=== PATIENT | female | born 1995 | race American Indian/Alaskan Native ===

== ENCOUNTER → 2018-03-07 15:10 | Outpatient (CLI) | payer MEDICAID, OTHER, SELFPAY ==
[2018-03-08 12:56] LABS: Strep Grp B PCR NEG for Grp B Strep
== END ==
PROVIDERS: Family Provider Family Medicine; PCP Family Medicine; Visit Provider Family Medicine
DX: Z34.93 Encounter for supervision of normal pregnancy, unspecified, third trimester (principal); Z3A.37 37 weeks gestation of pregnancy
CPT/HCPCS: 87653

== ENCOUNTER 2018-03-22 14:18 | Observation (INO) | payer MEDICAID, OTHER, SELFPAY | END 2018-03-22 17:05 | disposition home or self-care (01) | PROVIDERS: Admitting Provider Family Medicine; Family Provider Family Medicine; PCP Family Medicine; Visit Provider Family Medicine | DX: Z34.83 Encounter for supervision of other normal pregnancy, third trimester (principal); Z3A.39 39 weeks gestation of pregnancy | CPT/HCPCS: 59025; G0378; G0379 ==

== ENCOUNTER 2018-03-22 23:18 | Inpatient (IN) | payer MEDICAID, OTHER, SELFPAY ==
--- NOTE | 2018-03-22 23:44 | PM.OBHP.1 ---
OB HPI History of Present Illness Chief complaint: evaluation of labor Narrative: Sheri Nixon is a 22 year old female G4 P 1 who comes in in active labor dilated to 9 cm at 39 and 1 7 weeks gestation. Patient had presented earlier in the evening approximately 7 hr prior and very early labor. She was 3 cm dilated at that time, and had not changed after an hour. Patient's membranes were intact. Maternal laboratories include a blood type of O positive, antibody negative, serology nonreactive, rubella immune, gonorrhea and Chlamydia negative, hepatitis B and C negative, GBS negative. [facility] Social History Smoking Status: Never smoker Meds Home Medications Medication Instructions Recorded Confirmed Type No Known Home Medications 03/23/18 03/23/18 History Allergies Allergy/AdvReac Type Severity Reaction Status Date / Time No Known Drug Allergies Allergy Verified 03/23/18 08:42 Review of Systems Review of Systems All systems reviewed & are unremarkable except as noted in HPI and below Exam Vital Signs (past 8 hours): Patient in active labor. GENERAL: Well-developed well-nourished woman, clearly uncomfortable HEENT: Normocephalic, atraumatic, pupils equal and reactive to light and accommodation. LUNG: Clear to auscultation bilaterally. No wheeze or crackles or rhonchi. No increased work in breathing. CV: Regular rate and rhythm. No murmurs rubs or gallops. Abdomen: Soft, gravid. AFFECT: Alert and oriented X3. Conversational and appropriate. At the time of my exam the patient was complete and pushing. Brief auscultation of heart rate using Doppler revealed a pulse of 142. Contractions were every 2-3 minutes. Objective Labs Result Diagrams: 03/23/18 07:47 Assessment and Plan Plan: Plan: 1. Anticipate Spontaneous vaginal delivery.
--- NOTE | 2018-03-22 23:54 | P.HPOB_ITS ---
OB HPI History of Present Illness Chief complaint: evaluation of labor Narrative: Sheri Nixon is a 22 year old female G4 P 1 who comes in in active labor dilated to 9 cm at 39 and 1 7 weeks gestation. Patient had presented earlier in the evening approximately 7 hr prior and very early labor. She was 3 cm dilated at that time, and had not changed after an hour. Patient 's membranes were intact. Maternal laboratories include a blood type of O positive, antibody negative, serology nonreactive, rubella immune, gonorrhea and Chlamydia negative, hepatitis B and C negative, GBS negative. [facility] Social History Smoking Status: Never smoker Meds Home Medications Medication Instructions Recorded Confirmed Type No Known Home Medications 03/23/18 03/23/18 History Allergies Allergy/AdvReac Type Severity Reaction Status Date / Time No Known Drug Allergies Allergy Verified 03/23/18 08:42 Review of Systems Review of Systems All systems reviewed & are unremarkable except as noted in HPI and below Exam Vital Signs (past 8 hours): Patient in active labor. GENERAL: Well-developed well-nourished woman, clearly uncomfortable HEENT: Normocephalic, atraumatic, pupils equal and reactive to light and accommodation. LUNG: Clear to auscultation bilaterally. No wheeze or crackles or rhonchi. No increased work in breathing. CV: Regular rate and rhythm. No murmurs rubs or gallops. Abdomen: Soft, gravid. AFFECT: Alert and oriented X3. Conversational and appropriate. At the time of my exam the patient was complete and pushing. Brief auscultation of heart rate using Doppler revealed a pulse of 142. Contractions were every 2-3 minutes. Objective Labs Result Diagrams: 03/23/18 07:47 Assessment and Plan Plan: Plan: 1. Anticipate Spontaneous vaginal delivery.
[2018-03-23 00:03] LABS: Add Manual Diff / Slide Review NO; Basophils Percent Auto 0.6 % (0-2); Eosinophils Percent Auto 0.1 % (2-4); Hematocrit 31.6 % (36-46); Hemoglobin 10.4 g/dL (12.0-16.0); Lymphocytes Percent Auto 11.5 % (25-40); Mean Corpuscular Hemoglobin 24.6 PG (26-34); Mean Corpuscular Volume 74.6 fL (80-100); Monocytes Percent Auto 2.5 % (3-14); Neutrophils Absolute Auto 10600 /uL (3000-5900); Neutrophils Percent Auto 85.3 % (50-75); Platelet Count 490 X10^3/uL (150-400); Red Blood Cell Count 4.23 X10^6/uL (4.0-5.2); Red Cell Distribution Width 13.7 % (11.6-14.8); White Blood Cell Count 12.5 X10^3/uL (4.5-11.0)
[2018-03-23] MEDS: OXYTOCIN 10 UNIT/ML VIAL IM (00:15)
[2018-03-23] MEDS: IBUPROFEN 600 MG TABLET PO ×4 (01:05→20:24)
[2018-03-23 02:59] VITALS: BP 110/70
[2018-03-23 08:20] LABS: Hematocrit 30.6 % (36-46); Hemoglobin 9.8 g/dL (12.0-16.0)
--- NOTE | 2018-03-23 14:16 | PM.OBPRVD ---
Narrative: The patient is a 22-year-old G4 P 1-2 who presented in active labor at 9 cm dilated. Patient had previously presented earlier in the evening, dilated to 3 cm, and was sent home as she was felt to be in early labor. Patient presented to the center around 11:15 p.m.. Spontaneous rupture of membranes at 11:58 p.m.. Clear fluid. Patient began stage II at approximately 12:00 a.m.. She pushed for a few minutes, and delivered a healthy female at 12:03 a.m, via spontaneous vaginal delivery.. IM Pitocin was given after delivery of the . was placed on maternal abdomen. Placenta delivered at 12:19 a.m., intact. Patient tolerated the procedure well. She sustained a first-degree laceration which was repaired with 3 0 chromic. Estimated blood loss was approximately 200 mL
[2018-03-24] MEDS: IBUPROFEN 600 MG TABLET PO (02:51)
--- NOTE | 2018-03-24 11:13 | PM.DS.1 ---
History of Present Illness Chief complaint: evaluation of labor Discharge Providers Date of admission: 03/22/18 23:18 Primary care physician: Africa Gagnon MD Consults: 03/23/18 00:31 Consult to Outside Sales Consultant Routine Comment: Discharge provider: Africa Gagnon MD Summary Hospital Course: Sheri Nixon is a 22 year old female G4 P 1 who presented in active labor dilated to 9 cm at 39 and 1 7 weeks gestation. Patient had presented earlier in the evening approximately 7 hr prior and very early labor. She was 3 cm dilated at that time, and had not changed after an hour. Patient's membranes were intact. Patient progressed quite precipitously. She delivered a healthy female weighing 7 lb and 4 oz at 12 03 am on 03/23/2018. Remainder of hospital course was unremarkable. Patient had voided. hemoglobin was 9.8. Patient was feeding her infant quite well and does have experience with nursing. Maternal laboratories include a blood type of O positive, antibody negative, serology nonreactive, rubella immune, gonorrhea and Chlamydia negative, hepatitis B and C negative, GBS negative. Status at Discharge Functional status at discharge: independent ambulation Time Spent with Patient Less than 30 minutes Objective Labs Result Diagrams: 03/23/18 07:47 Discharge Plan Discharge Plan Patient Disposition: Home, Self-Care Discharge comment: f/U [place] 4-6 WEEKS Discharge Med Rec/Prescriptions Prescriptions: New oxycodone-acetaminophen 5-325 mg Tablet 1 tab PO Q4HR PRN (Reason: Pain, Moderate) Qty: 30 RF: 0 ibuprofen 600 mg Tablet 600 mg PO Q6HR PRN (Reason: Pain, Mild) Qty: 30 RF: 0 docusate sodium [Colace] 100 mg capsule 100 mg PO BID Qty: 30 RF: 0 [id number] [Prenatabs Rx] 29 mg iron- 1 mg Tablet 1 tab PO DAILY Qty: 90 RF: 0 No Action No Known Home Medications RF: 0 Provider Discharge Instructions Diet: Diet as Tolerated Discharge Data Primary Care Provider: Africa Gagnon Attending Provider: Africa Gagnon Admit Date/Time: 03/22/18 23:18
[2018-03-24 12:07] VITALS: BP 110/70; PULSE 90; TEMP 36.9
== END 2018-03-24 13:15 | disposition home or self-care (01) | DRG 775 ==
PROVIDERS: Admitting Provider Family Medicine; Family Provider Family Medicine; PCP Family Medicine; Visit Provider Family Medicine
DX: O70.0 First degree perineal laceration during delivery (principal); Z3A.39 39 weeks gestation of pregnancy; Z37.0 Single live birth
CPT/HCPCS: 36415; 59025; 59050; 59410; 85014; 85018; 85025; 86850; 86900; 86901; G0378; G0379; J2590

== ENCOUNTER 2018-12-03 23:12 | Emergency (ER) | payer MEDICAID, OTHER, SELFPAY ==
[2018-12-03 23:21] VITALS: BP 115/64; PULSE 78; RESP 20; TEMP 36.6; O2SAT 99
[2018-12-03] MEDS: PHENAZOPYRIDINE 100 MG PREPACK 1 BOTTLE MISC (23:38)
[2018-12-03] MEDS: cephALEXin 250 MG CAPSULE 500 MG PO (23:39)
[2018-12-03 23:45] VITALS: BP 114/66; PULSE 90; RESP 14; O2SAT 98
[2018-12-04 00:02] LABS: Bacteria Urine Moderate (10-30); Culture Indicated Urine Specimen Cultured; RBC Urine 10-30/HPF (0-5/HPF); Squamous Epithelial Cell Urine 1-5 /HPF; WBC Urine >100/HPF (0-5/HPF)
[2018-12-04 00:04] LABS: Ictotest Urine Negative (Negative)
--- NOTE | 2018-12-04 00:37 | ED.FEMALEGU ---
HPI - Female Genitourinary General Chief complaint: Urogenital-Female Stated complaint: thinks she has UTI painful urination Time Seen by Provider: 12/03/18 23:15 Source: patient and family Mode of arrival: ambulatory Limitations: no limitations History of Present Illness HPI Narrative: 23-year-old female nonsmoker presents with chief complaint of 24 hr of burning, frequency and urgency of urination as well as obvious mild hematuria. She denies any systemic findings such as fever chills nor nausea, vomiting or back pain. MD Complaint: dysuria and UTI Onset (ago): hour(s) Female Urogenital Radiation: Suprapubic Severity: mild Quality: Burning Duration: constant Relieving factors: none Exacerbating factors: none Urinary symptoms: Difficulty Urinating, Dysuria, Frequency, Hematuria and Urgency Patient : No Related Data Previous Rx's Medication Instructions Recorded cephalexin [Keflex] 500 mg PO QID 5 Days #20 cap 12/03/18 Allergies Allergy/AdvReac Type Severity Reaction Status Date / Time No Known Drug Allergies Allergy Verified 05/07/18 14:28 Review of Systems Constitutional Denies chills, Denies fever(s), Denies lethargy and Denies weakness Eyes Denies change in vision, Denies eye discharge, Denies irritation and Denies loss of vision ENT Ears, Nose, Mouth, and Throat: Denies change in voice, Denies neck pain and Denies sore throat Cardiovascular Denies chest pain, Denies irregular heart rhythm, Denies lightheadedness, Denies palpitations, Denies dyspnea, Denies dyspnea on exertion and Denies orthopnea Respiratory Denies cough, Denies dyspnea, Denies dyspnea on exertion and Denies wheezing Gastrointestinal Gastrointestinal: Denies abdominal pain, Denies change in bowel habits, Denies diarrhea, Denies nausea and Denies vomiting Genitourinary Denies hematuria, Reports dysuria, Denies flank pain, Denies urinary incontinence and Reports urinary urgency Musculoskeletal Denies neck pain Integumentary/Breasts Denies pruritus, Denies erythema, Denies rash and Denies wounds Neurologic Denies confusion, Denies loss of vision and Denies weakness Psychiatric Denies anxiety, Denies confusion, Denies depression, Denies homicidal ideation and Denies suicidal ideation Endocrine Denies palpitations Hematologic/Lymphatic Denies easy bruising Allergic/Immunologic Denies wheezing [facility] Social History Smoking Status: Never smoker Social History Smoking Status: Never smoker Exam Narrative Exam Narrative: GEN: AOx3 and in mild distress EYES: Pupils are equal, round, and reactive to light and accommodation. Extraoccular muscles are intact bilaterally. There is no subconjunctival hemorrhage or exudate. CHEST: Lungs are clear to auscultation bilaterally and free of wheezes, rales, or rhonchi. Heart rate is regular rhythm, there are no murmurs, clicks, rubs, or gallops. There is no chest wall tenderness. ABD: Abdomen is soft and mildly tender in the suprapubic region. There is no guarding or rebound. Bowel sounds are normal in all 4 quadrants. There is no mass or organomegaly. EXT: Full painless ROM of all extremities with no loss of sensation or strength. BACK: no CVA tenderness SKIN: Warm, pink, and dry. No erythema or rash Initial Vital Signs Initial Vital Signs: Vital Signs Temperature 97.9 F 12/03/18 23:21 Pulse Rate 78 12/03/18 23:21 Respiratory Rate 20 12/03/18 23:21 Blood Pressure 115/64 12/03/18 23:21 Pulse Oximetry 99 12/03/18 23:21 Course Orders Ordered: ED Orders 12/03/18 23:28 Ictotest Urine Stat Urine Culture Stat Urine Microscopic Stat Discontinued Medications Cephalexin HCl (Keflex) 500 mg PO NOW ONE Stop: 12/03/18 23:33 Last Admin: 12/03/18 23:39 Dose: 500 mg Phenazopyridine HCl (Pyridium 100mg Prepack) 1 bottle MISC SEEINSTR ONE Stop: 12/03/18 23:33 Last Admin: 12/03/18 23:38 Dose: 1 bottle Vital Signs - 8 hr 12/03/18 23:21 12/03/18 23:45 Temperature 97.9 F Pulse Rate 78 90 Respiratory Rate 20 14 Blood Pressure 115/64 114/66 Pulse Oximetry 99 98 MDM - Female Genitourinary Lab Data Lab Results 12/03/18 Range/Units 23:28 Urine Ictotest Negative (Negative) Urine RBC 10-30/hpf H (0-5/HPF) Urine WBC >100/hpf H (0-5/HPF) Ur Squamous Epith Cells 1-5 /hpf Urine Bacteria Moderate (10-30) H (None) Ur Culture Indicated? Specimen cultured Point of Care Testing Test Results Negative Urine Dip Bedside Urine Glucose Negative Bedside Urine Bilirubin + 1 Bedside Urine Ketone +/- 5 Urine Specific [place] 1.030 Bedside Urine Occult Blood +++ Bedside Urine pH 6.0 Bedside Urine Protein ++ 100 Bedside Urine Urobilinogen +/- 1mg Bedside Urine Nitrite + Positive Bedside Urine Leukocytes ++ 125 Esterase Discharge Plan Departure Patient Disposition: Home Clinical Impression: UTI (urinary tract infection) Qualifiers: Urinary tract infection type: acute cystitis Hematuria presence: with hematuria Qualified Code(s): N30.01 - Acute cystitis with hematuria Discharge Date/Time: 12/03/18 23:45 Interventions: ED Discharge Assessment Last Done: 12/03/18 23:45 Instructions: DI for Urinary Tract Infection (UTI) Activity Restrictions/Additional Instructions: *You have been diagnosed with [ acute UTI ] *What to do: *Take medications as directed: Prescription has been sent to [facility] based on your request *Follow up with your primary care provider in 2-3 days, call for an appointment. Let them know you were seen in the Emergency Department and that we ask that you be seen in follow up *Return to ER if you should have any new, worsening or concerning symptoms Prescriptions: New cephalexin [Keflex] 500 mg capsule 500 mg PO QID 5 Days Qty: 20 RF: 0 Referrals: Africa Gagnon MD [Primary Care Provider] - Stand Alone Forms: Work Release Note
== END 2018-12-03 23:45 | disposition home or self-care (01) ==
PROVIDERS: Emergency Provider Emergency Medicine; Family Provider Family Medicine; PCP Family Medicine
DX: N30.01 Acute cystitis with hematuria (principal)
CPT/HCPCS: 81003; 81015; 81025; 87077; 87086; 87186; 99282; 99283

== ENCOUNTER 2020-01-28 12:49 | Emergency (ER) | payer MEDICAID, OTHER, SELFPAY ==
[2020-01-28 12:56] VITALS: BP 118/73; PULSE 78; RESP 18; TEMP 36.3; O2SAT 99
[2020-01-28 13:19] VITALS: BP 118/73; PULSE 70; RESP 12; O2SAT 99
--- NOTE | 2020-01-28 13:25 | ED.NEUROSD ---
HPI - Neuro Symptoms/Deficit General Chief Complaint: Neuro Symptoms/Deficit Stated Complaint: RT SIDE OF BRAIN FEELS HEAVY Time Seen by Provider: 01/28/20 12:54 Source: patient Mode of arrival: Ambulatory Limitations: no limitations History of Present Illness HPI Narrative: 24-year-old female here for evaluation of complaints that the right side of her brain feels heavy. States that yesterday afternoon she was doing dishes. She states that she felt lightheaded. Developed somewhat of a headache after that. Initially after that felt like that the right side of her head was heavy. Could provide no other further information than that. No fevers. She states that today her symptoms have improved somewhat since yesterday per has not tried anything for symptoms prior to arrival. Has never had anything like this in the past. On Anticoagulants: No Related Data Allergies Allergy/AdvReac Type Severity Reaction Status Date / Time No Known Drug Allergies Allergy Verified 05/07/18 14:28 Review of Systems Constitutional Constitutional: Denies chills, Denies fatigue, Denies fever(s) and Reports headache(s) Eyes Eyes: Denies change in vision and Denies diplopia ENT Ears, Nose, Mouth, and Throat: Reports dizziness and Reports headache(s) Cardiovascular Cardiovascular: Denies chest pain, Denies palpitations and Denies dyspnea Respiratory Respiratory: Denies dyspnea Gastrointestinal Gastrointestinal: Reports nausea and Denies vomiting Musculoskeletal Musculoskeletal: Denies myalgias and Denies arthralgias Integumentary/Breasts Skin/Breast: Denies lesions and Denies rash Neurologic Neurologic: Reports dizziness and Reports headache(s) Comments: Right side of brain feels heavy Endocrine Endocrine: Denies fatigue and Denies palpitations Hematologic/Lymphatic Hematologic/Lymphatic: Denies easy bleeding and Denies easy bruising Patient History Medical History Impetigo (Inactive) Social History Smoking Status: Never smoker Smoking Status: Never smoker alcohol intake frequency: 0-2 drinks per day Substance Use Type: does not use Exam Initial Vital Signs Initial Vital Signs: Vital Signs Temperature 97.3 F L 01/28/20 12:56 Pulse Rate 78 01/28/20 12:56 Respiratory Rate 18 01/28/20 12:56 Blood Pressure 118/73 01/28/20 12:56 Pulse Oximetry 99 01/28/20 12:56 Const General: cooperative, comfortable, well developed, well groomed and No acute distress Limitations: mental status not altered HENDC Head: normal to inspection and normocephalic Eyes Pupils: PERRL EOM: EOM intact bilaterally Resp Effort & Inspection: normal respiratory effort Auscultation: clear to auscultation bilaterally Cardio Rate: regular rate Rhythm: regular rhythm Skin Lesions: no lesions Rashes: no rashes Neuro General: alert, awake and oriented x3 Cranial Nerves: CN's II-XI intact bilaterally Cognition: normal cognition Speech: speech normal Gait: normal gait Motor: muscle tone normal throughout Sensory Exam: no sensory deficits noted Coordination: [id number] test normal Extrem General: normal to inspection and capillary refill normal Psych Appearance: grossly normal and well kempt Scores GCS Annia coma scale eye opening: Spontaneous [place] coma scale verbal response: Orientated Annia coma scale motor response: Obey commands Annia coma scale total score: 15 Course Orders Ordered: ED Orders 01/28/20 13:10 Basic Metabolic Panel Stat Complete Blood Count AUTO DIFF Stat Test Serum,Qual Stat Vital Signs Vital signs: Vital Signs - 8 hr 01/28/20 12:56 01/28/20 13:19 01/28/20 14:00 Temperature 97.3 F L Pulse Rate 78 70 72 Respiratory Rate 18 12 16 Blood Pressure 118/73 Blood Pressure [Right Arm] 118/73 104/57 L Pulse Oximetry 99 99 98 MDM - Neuro Symptoms/Deficit Lab Data Attestation: I reviewed the patient's lab results. Result diagrams: 01/28/20 13:10 01/28/20 13:10 Labs: Lab Results 01/28/20 01/28/20 01/28/20 Range/Units 13:10 13:10 13:10 WBC 5.8 (4.5-11.0) X10^3/uL RBC 4.49 (4.0-5.2) X10^6/uL Hgb 12.8 (12.0-16.0) g/dL Hct 38.1 (36-46) % MCV 84.9 (80-100) fL MCH 28.6 (26-34) PG MCHC 33.7 (30-36) % RDW 13.6 (11.6-14.8) % Plt Count 414 H (150-400) X10^3/uL Neut % (Auto) 70.5 (50-75) % Lymph % (Auto) 23.6 L (25-40) % [place] % (Auto) 4.5 (3-14) % Eos % (Auto) 1.1 L (2-4) % Baso % (Auto) 0.3 (0-2) % Neut # (Auto) 4100 (6835-3264) /uL Lymph # (Auto) 1400 (7493-3570) /uL [place] # (Auto) 300 (0-900) /uL Eos # (Auto) 100 (0-450) /uL Baso # (Auto) 0 (0-100) /uL Sodium 142 (137-145) mmol/L Potassium 3.9 (3.4-5.1) mmol/L Chloride 109 H (98-107) mmol/L Carbon Dioxide 26 (22-32) mmol/L BUN 8 (7-17) mg/dL Creatinine 0.60 (0.52-1.04) mg/dL Estimated GFR > 60.0 (>60) mL/min BUN/Creatinine Ratio 13.3 (6-22) Glucose 95 (70-100) mg/dL Calcium 8.6 (8.4-10.2) mg/dL Serum , Qual Negative (Negative) MDM Narrative Medical decision making narrative: Patient with a normal neurologic exam. Labs unremarkable. I have low suspicion for CVA or TIA or intracranial hemorrhage. No objective findings on her exam. I feel we can hold on head CT. Low suspicion for meningitis she has not have a fever. Had a long discussion with the patient regarding her symptoms. She understands that they were vague symptoms and they have been improving since yesterday. She was given return precautions and follow-up instructions. She expressed understanding and agreement. Discharge Plan Departure Patient Disposition: Home Clinical Impression: Dizziness Instructions: DI for Dizziness-Nonvertigo Activity Restrictions/Additional Instructions: Your physical exam today is not consistent with a stroke. I recommend you contact your primary provider for follow-up. Please return to the emergency department for any new or worsening symptoms
[2020-01-28 13:35] LABS: Pregnancy Test Serum,Qual Negative (Negative)
[2020-01-28 13:41] LABS: Add Manual Diff / Slide Review NO; Basophils Absolute Auto 0 /uL (0-100); Basophils Percent Auto 0.3 % (0-2); Eosinophils Absolute Auto 100 /uL (0-450); Eosinophils Percent Auto 1.1 % (2-4); Hematocrit 38.1 % (36-46); Hemoglobin 12.8 g/dL (12.0-16.0); Lymphocytes Absolute Auto 1400 /uL (1100-4500); Lymphocytes Percent Auto 23.6 % (25-40); Mean Corpuscular HGB Conc 33.7 % (30-36); Mean Corpuscular Hemoglobin 28.6 PG (26-34); Mean Corpuscular Volume 84.9 fL (80-100); Monocytes Absolute Auto 300 /uL (0-900); Monocytes Percent Auto 4.5 % (3-14); Neutrophils Absolute Auto 4100 /uL (1500-7000); Neutrophils Percent Auto 70.5 % (50-75); Platelet Count 414 X10^3/uL (150-400); Red Blood Cell Count 4.49 X10^6/uL (4.0-5.2); Red Cell Distribution Width 13.6 % (11.6-14.8); White Blood Cell Count 5.8 X10^3/uL (4.5-11.0)
[2020-01-28 14:00] VITALS: BP 104/57; PULSE 72; RESP 16; O2SAT 98
[2020-01-28 14:27] LABS: BUN Creatinine Ratio 13.3 (6-22); Blood Urea Nitrogen 8 mg/dL (7-17); Calcium 8.6 mg/dL (8.4-10.2); Carbon Dioxide 26 mmol/L (22-32); Chloride 109 mmol/L (98-107); Estimated Glomerular Filt Rate > 60.0 mL/min (>60); Glucose 95 mg/dL (70-100); HEMOLYSIS < 15 (0-50); Potassium 3.9 mmol/L (3.4-5.1); Sodium 142 mmol/L (137-145)
[2020-01-28 14:43] VITALS: BP 111/59; PULSE 87; RESP 19; O2SAT 99
== END 2020-01-28 14:44 | disposition home or self-care (01) ==
PROVIDERS: Emergency Provider Emergency Medicine
DX: R42 Dizziness and giddiness (principal); R51 Headache
CPT/HCPCS: 80048; 84703; 85025; 99283; 99284

== ENCOUNTER → 2020-11-11 07:46 | Outpatient (CLI) | payer MEDICAID, OTHER, SELFPAY ==
--- NOTE | 2020-11-11 | DI.US.S_ITS ---
PROCEDURE: US ABDOMEN LIMITED INDICATIONS: Abnormal levels of other serum enzymes TECHNIQUE: Real-time focused scanning was performed of the abdomen, with image documentation. COMPARISON: None. FINDINGS: Liver is diffusely echogenic and measures 15.4 cm in length. No focal hepatic lesion identified although suboptimal assessment given echogenicity of liver parenchyma. No gallstones identified. There is a 6 x 5 x 4 mm a vascular mural nodule involving the gallbladder. No gallbladder wall thickening or sonographic Thomas sign. No intra or extrahepatic bile duct dilatation. The pancreas is sonographically not well seen. No right upper quadrant free fluid. IMPRESSION: 6 mm gallbladder polyp. As clinically warranted, follow-up ultrasound to document long-term stability and exclude neoplasm could be performed in 3, 6, and 12 months. Coarse echogenic liver suggesting diffuse hepatocellular disease/fatty infiltration. Please correlate with LFTs. Dictated by: Rojelio Blackman M.D. on 11/11/2020 at 10:04 Approved by: Rojelio Blackman M.D. on 11/11/2020 at 10:10
== END ==
PROVIDERS: PCP Family Medicine; Referring Provider Family Medicine; Visit Provider Family Medicine
DX: R74.8 Abnormal levels of other serum enzymes (principal); K82.4 Cholesterolosis of gallbladder
CPT/HCPCS: 76705

== ENCOUNTER 2021-09-13 23:39 | Emergency (ER) | payer MEDICAID, OTHER, SELFPAY ==
[2021-09-13 23:52] VITALS: BP 111/67; PULSE 77; RESP 14; TEMP 36.4; O2SAT 100; BMI 31.8
[2021-09-14 00:06] LABS: COVID19 -Nasal RAPID POSITIVE (Negative)
--- NOTE | 2021-09-14 00:12 | ED_ITS ---
HPI - URI/Sore Throat General Chief Complaint: Upper Respiratory Symptoms Stated Complaint: headache/cannot smell anything x4 days Time Seen by Provider: 09/14/21 00:04 Source: patient Mode of arrival: Ambulatory History of Present Illness HPI Narrative: Patient is a 25-year-old female history of kidney stones presenting with fever body aches, this evening she lost her taste and smell decided to come get checked for COVID. She is vaccinated. She also been having headache a well. Generally she does not feel well. Related Data Allergies Allergy/AdvReac Type Severity Reaction Status Date / Time No Known Drug Allergies Allergy Verified 05/07/18 14:28 Review of Systems Review of Systems Narrative: GENERAL: See HPI HEENT: Denies sinus pain, ear pain, sore throat, difficulty swallowing, neck pain RESPIRATORY: Denies dyspnea, cough, wheezing, hemoptysis, sputum. CARDIOVASCULAR: Denies chest pain, palpitations, orthopnea, edema GASTROINTESTINAL: Denies nausea, vomiting, abdominal pain, diarrhea, constipation, melena. : Denies dysuria, frequency, incontinence, hematuria, urinary retention, flank pain. MUSCULOSKELETAL: Denies weakness, joint pain, or bony pain SKIN: No rash, no erythema, no pruritus NEUROLOGIC: + headache PSYCHIATRIC: No concerning psychosocial issues. 12 point review of systems is negative except for those stated above and HPI Patient History Medical History (Updated 09/14/21 @ 00:13 by Irene Haas DO) Impetigo Social History Smoking Status: Never smoker Smoking Status: Never smoker alcohol intake frequency: 0-2 drinks per day Substance Use Type: does not use Exam Initial Vital Signs Initial Vital Signs: Vital Signs Temperature 97.5 F L 09/13/21 23:52 Pulse Rate 77 09/13/21 23:52 Respiratory Rate 14 09/13/21 23:52 Blood Pressure 111/67 09/13/21 23:52 Pulse Oximetry 100 09/13/21 23:52 GENERAL: Alert 25-year-old female appears to not feel CARDIOVASCULAR: peripheral pulses in tact, cap refill <2 sec RESPIRATORY: No respiratory distress, speaks in full sentences without difficulty [ABDOMEN: Soft, nontender, no guarding or rebound] EXTREMITIES: Normal range of motion, no clubbing or edema. Neurovascularly intact NEUROLOGICAL: Cranial nerves II through XII grossly intact. Normal gait and speech. SKIN: Warm, dry, no petechiae, no rashes or lesions. Course Orders Ordered: ED Orders 09/13/21 23:53 COVID19 -Nasal swab/Pre-Proc Stat Vital Signs Vital signs: Vital Signs - 8 hr 09/13/21 23:52 Temperature 97.5 F L Pulse Rate 77 Respiratory Rate 14 Blood Pressure 111/67 Pulse Oximetry 100 MDM - URI/Sore Throat Lab Data Labs: Lab Results 09/13/21 Range/Units 23:53 SARS-CoV-2 (PCR) Positive H (Negative) Discharge Plan Departure Patient Disposition: Home Clinical Impression: COVID-19 Instructions: DI for COVID-19 (Suspected or Confirmed ) Activity Restrictions/Additional Instructions: * if you have not yet been vaccinated is still recommended and encouraged that you do so once your infection has passed At home: -Monitor oxygen with pulse oximeter. If less than 90% for more than 1 hour please return to emergency department -I recommend lying on stomach for side rather than back, it has been proven to increase oxygen levels -Wash hands frequently. -Stay isolated at home please follow the isolation instructions below. -Increase fluid intake. -you may take Tylenol as directed if needed for pain or fever Emergency warning signs for COVID-19: - Difficulty breathing or shortness of breath, oxygen less than 90% - Persistent pain or pressure in the chest - New confusion or inability to arouse - Bluish lips or face CDC Guidelines for home isolation: - Stay away from others - Limit contact with pets and animals: If you must care for a pet, wash your hands before and after interacting with them - Wear a mask while in public all places - Cover your mouth and nose with a tissue when you cough or sneeze. Dispose of tissues in a lined trash can and wash your hands immediately with soap and water for at least 20 seconds. If soap and water are not available, clean hands with alcohol-based hand border measurer and cutter that contains at least 60% alcohol. - Clean your hands often with soap and water for at least 20 seconds - Avoid touching your eyes, nose and mouth with unwashed hands - Do not share dishes, drinking glasses, cups, eating utensils, towels, or bedding with other people in your home. After using these items, wash them thoro ughly with soap and water or put in the joint filler. - Clean high-touch surfaces in your isolation area (?sick room? and bathroom) every day; let a caregiver clean and disinfect high-touch surfaces in other areas of the home. Clean the area or item with soap and water or another detergent if it is dirty. Then, use a household disinfectant. Referrals: Artie Del Angel MD [Primary Care Provider] -
== END 2021-09-14 00:20 | disposition home or self-care (01) ==
PROVIDERS: Emergency Provider Emergency Medicine; PCP Family Medicine
DX: U07.1 COVID-19 (principal)
CPT/HCPCS: 87635; 99281; C9803

== ENCOUNTER → 2024-01-24 14:25 | Outpatient (CLI) | payer MEDICAID, OTHER, SELFPAY ==
[2024-01-24 15:14] LABS: Add Manual Diff / Slide Review NO; Basophils Absolute Auto 0 /uL (0-100); Basophils Percent Auto 0.3 % (0-2); Eosinophils Absolute Auto 100 /uL (0-450); Hematocrit 36.4 % (36-46); Hemoglobin 12.5 g/dL (12.0-16.0); Lymphocytes Absolute Auto 1300 /uL (1100-4500); Lymphocytes Percent Auto 13.9 % (25-40); Mean Corpuscular HGB Conc 34.4 % (30-36); Mean Corpuscular Hemoglobin 28.5 PG (26-34); Mean Corpuscular Volume 82.9 fL (80-100); Monocytes Absolute Auto 400 /uL (0-900); Neutrophils Absolute Auto 7300 /uL (1500-7000); Neutrophils Percent Auto 80.8 % (50-75); Platelet Count 508 X10^3/uL (150-400); Red Blood Cell Count 4.39 X10^6/uL (4.0-5.2); Red Cell Distribution Width 13.5 % (11.6-14.8)
[2024-01-24 17:04] LABS: Hepatitis B Surface Antigen NEGATIVE s/c (NEGATIVE); Rubella Antibody IgG 11.9 IU/mL (>15)
[2024-01-24 17:23] LABS: HIV 1 & 2 Ab/Ag 4th Gen Combo NEGATIVE (NEGATIVE); Hep C Virus Ab w/Reflex Quant NEGATIVE s/c (NEGATIVE)
[2024-01-24 18:40] LABS: Appearance Urine UA CLEAR; Bilirubin Urine UA NEGATIVE (NEGATIVE); Color Urine UA YELLOW; Glucose Urine UA NEGATIVE (Negative); Ketones Urine UA 1+ (NEGATIVE); Leukocyte Esterase Urine UA NEGATIVE (NEGATIVE); Nitrite Urine UA NEGATIVE (Negative); Occult Blood Urine UA TRACE-INTACT (Negative); Protein Urine UA 1+ (Negative); Specific Gravity Urine UA 1.025 (1.000-1.035)
[2024-01-24 19:00] LABS: pH Urine UA 6.5 (4.5-8.0)
[2024-01-24 21:01] LABS: Urine Chlamydia NOT DETECTED; Urine N gonorrhoeae NOT DETECTED
[2024-01-26 05:02] LABS: RPR Screen Non Reactive (Non Reactive)
[2024-01-26 10:12] LABS: Varicella IgG Antibody 476 index (Immune >165)
== END ==
PROVIDERS: PCP Family Medicine; Referring Provider Family Medicine; Visit Provider Family Medicine
DX: Z34.01 Encounter for supervision of normal first pregnancy, first trimester (principal)
CPT/HCPCS: 36415; 80055; 81003; 86787; 86803; 86850; 86900; 86901; 87086; 87389; 87491; 87591

== ENCOUNTER → 2024-04-28 06:45 | Outpatient (CLI) | payer MEDICAID, OTHER, SELFPAY ==
--- NOTE | 2024-04-28 06:46 | DI.US.S_ITS ---
PROCEDURE: US OB >= 14 WEEKS FETUS INDICATIONS: 20 week anatomy scan OUTSIDE/PRIOR DATING DATA: Last menstrual period (LMP): Unknown. LMP-based estimated date of delivery (BRENNAN): Unknown. First dating scan (date and location): Thigh report performed elsewhere on 01/24/2024. Estimated date of delivery (BRENNAN) from first dating scan: By report performed elsewhere, [facility] The calculations are made using the reported ultrasound BRENNAN of 09/07/2024. TECHNIQUE: Real-time scanning was performed of the fetus, with image documentation and biometric measurements. Endovaginal scanning: Not performed COMPARISON: None. FINDINGS: General: A single living intrauterine gestation is present. Presentation: Vertex. Placenta: Placental position is posterior , without previa. Amniotic fluid index: 18.4 cm, normal range is 5-24 cm. Single deepest vertical pocket is 5.8 cm. heart rate: 132 beats per minute. Maternal cervical canal: 4.6 cm long. Normal lower limit is 2.5 cm. biometrics: Biparietal diameter: 5.2 cm, 21 weeks 6 days Head circumference: 19.6 cm, 21 weeks 6 days Abdominal circumference: 17.3 cm, 22 weeks 2 days Femur length: 3.9 cm, 22 weeks 3 days Clinically estimated gestational age: 21 weeks 1 day Composite gestational age from present scan: 22 weeks 1 day Estimated weight and percentile: 486 g, 93rd percentile Anatomic survey: Neuro: Ventricles are non-dilated at less than 10 mm. Cisterna magna is normal at 3-11 mm. Cerebellum is normal in size and morphology. Nuchal skin fold: Normal at less than 6 mm between 14-21 weeks gestational age. Face: Nose and lips, facial profile are normal. Spine: No evidence for spina bifida. Heart: 4-chambered heart is present, with normal ventricular outflow tracts. Diaphragm: Diaphragm is intact. Stomach: Left-sided stomach is present. Kidneys: No hydronephrosis. Normal is less than 5 mm in 2nd trimester, less than 7 mm in 3rd trimester. Cord: 3-vessel cord has orthotopic insertion. Bladder: Normal in size. Extremities: All 4 extremities identified. IMPRESSION: 1. Living 2nd trimester intrauterine with no sonographic evidence of complications. Current ultrasound age is 7 days greater than a stab a list clinical age. 2. Normal 2nd trimester anatomy study. We strive to produce accurate, complete, and clear reports of imaging services. To assist us in improving patient care, this report was composed using standard report templates and voice recognition software. Therefore, it may contain abnormal punctuation, insertions and/or omissions. Occasional wrong-word or sound-alike substitutions may occur. Though we review the report and make efforts to correct it, we do recommend that the report be read carefully in proper context to recognize any text inaccuracies. Dictated by: Wood Santiago M.D. on 04/28/2024 at 14:56 Approved by: Wood Santiago M.D. on 04/28/2024 at 15:02
== END ==
PROVIDERS: PCP Family Medicine; Referring Provider Nurse Practitioner Obstetrics & Gynecology; Visit Provider Nurse Practitioner Obstetrics & Gynecology
DX: Z34.82 Encounter for supervision of other normal pregnancy, second trimester (principal); Z3A.22 22 weeks gestation of pregnancy
CPT/HCPCS: 76811

== ENCOUNTER 2024-08-21 06:08 | Inpatient (IN) | payer MEDICAID, SELFPAY ==
--- NOTE | 2024-08-21 06:27 | PM.OBHP.1 ---
OB HPI Date/Time Date of admission: 08/21/24 Date Patient Seen: 08/21/24 Time Patient Seen: 06:27 History of Present Condition Chief complaint: Labor : 5 Para: 2 Estimated Date of Delivery: 09/07/24 Estimated Gestational Age (weeks): 37.4 Narrative: Sheri Nixon is a 28 year old female @ 37wks 4days by 7wk US presents for evaluation of labor. Awoke at 0330 feeling more vaginal pressure and discomfort in her back. Contractions have steadily increased in frequency and intensity. Feeling good FM. Has noticed some blood in her vaginal discharge. No leaking of fluid. Transferred into [facility] care at 20 weeks from . Desires low intervention, unmedicated . Supportive Leida is at her side and her family and pole peeling machine operator helper are on their way. History of Present care: good care, initiated at week # (7), number of visits (9) and pounds weight gain (14) Dating criteria: based on 1st trimester US only Ultrasounds: normal 1st trimester US and normal mid trimester US Obstetrical complications: none Medical complications: other (iron deficiency anemia, IV Fe given @ 33wks) Preadmission Labs Blood type: O (+) positive -: Antibody screen: negative, GBS status: negative, HBsAG: negative, HIV: negative and RPR/VDLR: negative -: Chlamydia screen: not detected and Gonorrhea screen: not detected -: Rubella: not immune and Varicella: equivocal HCT: 29 HCAB: negative 1 hr GTT: 95 Narrative: Prior (ies) History: above Evaluation Evaluation Baseline heart rate: 150 Variability: Moderate (11-25) monitor accelerations: Present Monitor Decelerations: Absent Contraction Frequency (minutes): 5 Uterine Contraction Intensity: Strong/Firm Status: Category l Dilation (cm): 6 Effacement (%): 80 Dilation: >/=5 cm Effacement: >/=80% station: -2 Position of cervix: posterior Consistency: soft Griffin score: 9 PFSH Medical History depression Asthma Constipation Impetigo Surgical History History of dental surgery Family History Mother Fibromyalgia Brother Asthma Family/Other Asthma Aunt Rheumatoid arthritis Aunt Uterine cancer Social History marital status: number of children: 4 household members: spouse, family and children lives independently: Yes caregiver/support person: Yes housing: house pets and animals: Yes (4 dogs, snake, lizard) education level: college occupational status: unemployed current occupational exposures/hazards: No special toyin needs: No travel history: over 6 months ago seatbelt use: always helmet use: Yes water heater temp set < 120 deg: Yes working smoke detector in home: Yes fire extinguisher in home: Yes carbon monox detector in home: Yes firearms in home: No do you feel safe at home: Yes Smoking Status: Former smoker Tobacco: How many years used: 10 second hand exposure: No alcohol intake: never substance use type: does not use during the past year weight has: remained stable well-balanced diet: daily or most days daily servings fruits/ve or more times/day caffeine: No Type(s) of exercise: walking frequency: daily Meds Home Medications and Allergies Home Medications Medication Instructions Recorded Confirmed Type vit no.95-ferrous 1 tab PO DAILY 01/24/24 04/09/24 History fumarate 28 mg-folic acid 800 mcg tablet ( Multivitamins) Allergies Allergy/AdvReac Type Severity Reaction Status Date / Time No Known Drug Allergies Allergy Verified 04/09/24 09:56 Review of Systems Review of Systems ROS: Yes All systems reviewed with the patient and are negative except as otherwise documented OB Exam Vital signs Blood Pressure: 113/62 Pulse Rate: 92 Temperature: 97.5 F Resp Effort & Inspection: normal respiratory effort and able to speak in complete sentences Auscultation: clear to auscultation bilaterally Cardio Rate: regular rate Rhythm: regular rhythm Presentation: vertex Objective Labs 08/21/24 06:35 Assessment and Plan Assessment and Plan Assessment and Plan narrative: A: Early Term Multipara Approaching active labor Hx of anemia Cat I FHR P: Admit, routine labor orders. Expectant management of labor. Labor support PRN. Active management of the third stage. Reassess in 4 hours or sooner, PRN. Time-Based Coding :: [TOTAL MINUTES] spent with patient and on the chart (including review of chart, obtaining history, exam, reviewing outside data, placing orders, documenting exam and treatment plan, and counseling patient) on [DATE].
[2024-08-21 06:41] VITALS: BP 113/62; PULSE 92
[2024-08-21 06:44] VITALS: TEMP 36.4
[2024-08-21 06:48] LABS: Add Manual Diff / Slide Review NO; Basophils Absolute Auto 0 /uL (0-100); Basophils Percent Auto 0.6 % (0-2); Eosinophils Absolute Auto 0 /uL (0-450); Eosinophils Percent Auto 0.4 % (2-4); Hematocrit 34.1 % (36-46); Hemoglobin 11.4 g/dL (12.0-16.0); Lymphocytes Absolute Auto 800 /uL (1100-4500); Lymphocytes Percent Auto 12.4 % (25-40); Mean Corpuscular HGB Conc 33.4 % (30-36); Mean Corpuscular Hemoglobin 27.3 PG (26-34); Mean Corpuscular Volume 81.6 fL (80-100); Monocytes Absolute Auto 300 /uL (0-900); Monocytes Percent Auto 4.5 % (3-14); Neutrophils Absolute Auto 5600 /uL (1500-7000); Neutrophils Percent Auto 82.1 % (50-75); Platelet Count 377 X10^3/uL (150-400); Red Blood Cell Count 4.18 X10^6/uL (4.0-5.2); Red Cell Distribution Width 21.2 % (11.6-14.8); White Blood Cell Count 6.8 X10^3/uL (4.5-11.0)
[2024-08-21 07:09] LABS: Anisocytosis 1+; Microcytosis 1+; Platelet Estimate Adequate on smear
--- NOTE | 2024-08-21 08:41 | PM.OBPNLAB ---
Date/Time Date Patient Seen: 08/21/24 Time Patient Seen: 08:41 Pain Control Pain control: tolerating well (support from belinda) Comments: Sheri has been coping well with support and encouragement from belinda and her Leida. Breathing through regular, strong contractions. Requesting a cervical exam to help her decide how she wants to labor. As I was leaving the room, Sheri requests and epidural and primary nurse was notified. VS: BP 118/61 HR: 88 RR:17 T: 36.2C Pelvic Exam Dilation (cm): 7 Effacement (%): 80 station: -1 Comments: Intact 7-8 cm with contraction and bulging bag Contractions Monitor mode: Palpation Contraction frequency (min): 2 (2-3) Contraction duration (min): 1 (1-1.5) Contraction pattern: Regular Contraction intensity: Strong/Firm Status Comments: IA 135-155bpm before/during/after contraction Assessment and Plan Assessment: active labor Plan: continuous present management Comments: Active labor Intact membranes No antibiotics indicated Rhogam not indicated, O+ Reassuring heart rate by IA Epidural for pain management Continued labor support from belinda and Switch to CF for epidural Reassess in 4 hours though anticipate 2nd stage soon
[2024-08-21] MEDS: LACTATED RINGERS 1,000 ML 100 ML IV ×2 (08:46→09:47)
--- NOTE | 2024-08-21 09:50 | PM.AN.REGBLK ---
Regional Block Pre-procedure Procedure: Continuous Lumbar Epidural for L&D Attending OB provider: Swathi Irving PMH/ROS narrative: requesting lumbar epidural for labor pain. PSH/Anesthesia history narrative: Previous uncomplicated lumbar epidural for first labor. Exam narrative: See pre-anesthesia eval. ASA Class: II Labs: Hct 34.1 % (36-46) L 08/21/24 06:35 Plt Count 377 X10^3/uL (150-400) 08/21/24 06:35 Medications: Current Medications Generic Name Dose Route Start Last Admin Trade Name Freq PRN Reason Stop Dose Admin Calcium Carbonate 1,000 mg 08/21/24 06:22 Calcium Carbonate 500 Mg Tab PO Q2HR PRN Dyspepsia Carboprost Tromethamine 250 mcg 08/21/24 06:22 Carboprost 250 Mcg/Ml Ampul IM Q90M PRN Bleeding Diphenhydramine HCl 25 mg 08/21/24 09:47 Diphenhydramine 50 Mg/Ml Vial IV Q10M PRN Pruritis Ephedrine Sulfate 10 mg 08/21/24 09:47 Ephedrine 50 Mg/Ml Vial IV Q5M PRN Blood pressure decrease more than 20% of baseline. Fentanyl 100 mcg 08/21/24 06:22 Fentanyl 100 Mcg/2 Ml Inj IV Q1H PRN Pain, Severe (7-10) Oxytocin/Lactated Ringer's 30 unit in 500 mls @ 200 mls/hr 08/21/24 06:22 Oxytocin Premix IV CONT PRN Bleeding Protocol Tranexamic Acid 1,000 mg/ 100 mls @ 600 mls/hr 08/21/24 06:22 Sodium Chloride IV NOW PRN Bleeding Lactated Ringer's 1,000 mls @ 100 mls/hr 08/21/24 06:30 08/21/24 09:47 Lactated Ringers IV 08/21/24 16:29 100 mls/hr CONT EMELI Administration FENT 2MCG/ML BUPIV 0.125% EPI 200 mcg in 100 mls @ 6 mls/hr 08/21/24 09:36 Fentanyl/Bupiv/Ns 2mcg/Ml - 0.125% EPIDURAL CONT EMELI Lidocaine HCl 20 ml 08/21/24 06:22 Lidocaine 1% 20 Ml INJ INTRA-OP PRN Post Delivery Methylergonovine Maleate 0.2 mg 08/21/24 06:22 Methylergonovine 0.2 Mg Tablet PO Q6HR PRN Heavy Bleeding Methylergonovine Maleate 0.2 mg 08/21/24 06:22 Methylergonovine 0.2 Mg/Ml Vial IM NOW PRN Bleeding Mineral Oil 30 ml 08/21/24 06:22 Mineral Oil 30 Ml Udc TOP PRN PRN Version Misoprostol 800 mcg 08/21/24 06:22 Misoprostol 200 Mcg Tablet TN NOW PRN Bleeding Misoprostol 400 mcg 08/21/24 06:22 Misoprostol 200 Mcg Tablet SL NOW PRN Bleeding Nalbuphine HCl 2.5 mg 08/21/24 09:47 Nalbuphine 20 Mg/Ml Ampul IV Q10M PRN Pruritis Naloxone HCl 0.2 mg 08/21/24 06:22 Naloxone 0.4 Mg/Ml Vial IV Q2MIN PRN Opiate Reversal Ondansetron HCl 4 mg 08/21/24 06:22 Ondansetron 4 Mg/2 Ml Inj IV Q4HR PRN Nausea And Vomiting Oxytocin 10 unit 08/21/24 06:22 Oxytocin 10 Unit/Ml Vial IM NOW PRN Bleeding Allergies: Allergies Allergy/AdvReac Type Severity Reaction Status Date / Time No Known Drug Allergies Allergy Verified 04/09/24 09:56 Procedure Insertion date: 08/21/24 Insertion time: 09:23 Prep/Local: 1% lidocaine (CHG to back for skin prep. 5mL 1% lidocaine to L3/4 interspace.) Interspace: L3/4 Patient position: sitting Needle: 18 gauge Hustead (& 27g Pencan through Hustead and dura ligament for CSE with 1mL 0.25% MPF bupivacaine) Loss of resistance with: saline CHERI at (cm): 7 (7.5) Catheter placed at SKIN (cm): 13 Catheter in SPACE (cm): 6 (5.5) Insertion: No CSF, Yes Blood, No Paresthesia with insertion, No Paresthesia with injection and No Test dose reaction Initial Medications TEST DOSE time: 09:28 Infusion INFUSION: 0.125% bupivacaine and with fentanyl 2 mcg/mL Initial rate (mL/hr): 6 Post-procedure Anesthesia date START: 08/21/24 Anesthesia time START: 09:10 Anesthesia date END: 08/21/24 Anesthesia time END: 13:37 Post-procedure Anesthesia Assessment: Yes CV function: HR/BP stable, Yes Resp function: RR/sat/airway adequate, Yes Post-op hydration adequate, Yes Pain control adequate, Yes Nausea & vomiting absent, Yes Temperature > 36 C, Yes Mental status appropriate and No Anesthesia complications
[2024-08-21] MEDS: ACETAMINOPHEN 325 MG TABLET 650 MG PO ×2 (13:33→19:53)
[2024-08-21] MEDS: OXYTOCIN PREMIX 30 UNIT/500 ML PLAST..BAG 334 UNIT IV (13:41)
--- NOTE | 2024-08-21 14:03 | PM.OBPRVD ---
Labor & Delivery Delivery date: 08/21/24 Intrapartal Events: None Cervical ripening method: none Induction method: none Delivery monitor: external FHT and external uterine Route of delivery: Episiotomy description: None L&D Laceration Description: None Quantitative Blood Loss: 134 Anesthesia Type: Epidural Narrative: Sheri labored well with a good working epidural, support, and encouragement from family, SNM and CNM. No labor augmentation was indicated. Cervical exam at 1151 was 10/100/-1. After laboring down for 1 hour, she felt the spontaneous urge to push. Family and nursing staff assisted her up to a squatting position with the bed squat bar where she pushed for several minutes. Family and staff then assisted her to her back at her request where she continued to push. She switched between these two position a few times. While lying on her back in bed, she delivered a single, vigorous baby girl. The head was born and restituted RADHA along with the anterior shoulder, born en caul. The posterior shoulder and rest of the body delivery easily, caught by SNJuancarlos and Sheri's mother. Bag of powers broke after the delivery of the posterior shoulder, fluid was clear. A single lose nuchal cord and membranes were removed from the face of the baby and she was placed on the maternal abdomen for drying and skin to skin. Apgars 9/9. Baby had first meconium stool on maternal abdomen. Pitocin was started for active management of the second stage. The cord was double clamped by SNM and cut by FOB after pulsing ceased. Cord blood was collected. An apparently intact placenta delivered via Schultze presentation and the fundus firm at the umbilicus immediately after. At Sheri's request the baby was removed from her abdomen and placed skin to skin with FOB. Mother and baby were stable when I left the room. QBL by weight was 134mL. Baby 1: gender: Female Presentation: vertex Position: Left Occiput Anterior Placenta delivery description: Spontaneous and Normal Configuration Cord Vessel Description: 3 Vessels, Nuchal Cord and Loose score (1 min): 9 score (5 min): 9 weight: 3.655 kg Plan for aftercare: Routine care
[2024-08-21] MEDS: WITCH HAZEL/GLYCERIN PADS 1 EACH TOP (15:07)
[2024-08-21] MEDS: LANOLIN OINT 7 GM 1 APPLIC TOP (15:07)
[2024-08-21] MEDS: DERMOPLAST SPRAY 20% 60 ML 1 SPRAY TOP (15:07)
[2024-08-21] MEDS: KETOROLAC 30 MG/ML VIAL IV (15:08)
[2024-08-21] MEDS: IBUPROFEN 600 MG TABLET PO (23:47)
[2024-08-22] MEDS: OXYCODONE IR 5 MG TABLET PO (03:40)
--- NOTE | 2024-08-22 08:08 | PM.OBDS.1 ---
Discharge Providers Provider Date of admission: 08/21/24 06:08 Discharge Date: 08/22/24 Primary care physician: Artie Del Angel MD Consults: 08/22/24 13:55 Consult to Supervisor Hanging And Trimming Routine Comment: Discharge provider: Swathi Irving CNM Summary Hospital Course Date Patient Seen: 08/22/24 Time Patient Seen: 08:09 Diagnoses: O80 Hospital Course: 18 hrs s/p NSVB: Sheri arrived in spontaneous labor and labor progressed well without augmentation and with adequate epidural anesthesia. NSVB of a healthy baby girl en caul and Sheri had no lacerations. This morning she is voiding, ambulating and feeding her baby independently. Tolerating a general diet. Pain is well controlled with PO medication, though her cramping pain was quite painful last night, she did take an oxycodone for relief and she would like a few to go home with. Vaginal bleeding is like a period, without clots. She and Mayra are eager for discharge to home today with their baby girl. Peripartum Data Delivery Method: Natural Vaginal Laceration Description: None Episiotomy description: None Procedures: O80 complications: none Time Spent with Patient Time attestation: Total time spent providing and/or coordinating discharge services: Objective Labs 08/21/24 06:35 Exam Vital Signs (past 8 hours): BP 94/61, HR 89bpm, RR 16, T 97.3F Temporal, SpO2 97% on RA Other: Fundus firm @ U-1, lochia small, perineum intact, mild edema Discharge Plan Discharge Plan Patient Disposition: Home Discharge orders & Medications Prescriptions: New oxycodone 5 mg Tablet 5 mg PO Q4HR PRN (Reason: Pain, Moderate (4-6)) 5 Days Qty: 8 0RF ibuprofen 600 mg Tablet 600 mg PO Q6HR PRN (Reason: Pain, Mild (1-3)) 14 Days Qty: 60 0RF Continued PNV cmb#95-ferrous fumarate-FA [ Multivitamins] 28 mg iron- 800 mcg tablet 1 tab PO DAILY Follow up/Referrals: Artie Del Angel MD [Primary Care Provider] - Swathi Irving CNM [Advanced Glue Specialty Supervisor] - (2week appointment: 09/03/24 @ 4:15pm 6 week appointment: 10/03/24 @ 3:15pm) Diet/Activity/Treatments Diet: Diet as Tolerated and Regular Activity: bed rest x 2 weeks, no heavy lifting x 4 weeks, pelvic rest x 6 weeks Skin/Wound/Dressing Care Report to your healthcare provider any signs of infection, such as:: chills, fever, increased pain, unusual drainage and unusual redness Visit Report/Discharge Packet Stand Alone Forms: Patient Portal/API, Stroke Signs & Symptoms Discharge Data Primary Care Provider: Artie Del Angel
[2024-08-22] MEDS: ACETAMINOPHEN 325 MG TABLET 650 MG PO (08:47)
[2024-08-22] MEDS: IBUPROFEN 600 MG TABLET PO (08:48)
[2024-08-22] MEDS: MEASLES,MUMPS,RUBELLA VACC/PF 0.5 ML VIAL SUBCUT (08:53)
== END 2024-08-22 11:05 | disposition home or self-care (01) | DRG 807 ==
PROVIDERS: Admitting Provider Nurse Practitioner Obstetrics & Gynecology; PCP Family Medicine; Referring Provider Nurse Practitioner Obstetrics & Gynecology; Visit Provider Nurse Practitioner Obstetrics & Gynecology
DX: O80 Encounter for full-term uncomplicated delivery (principal); Z37.0 Single live birth; Z3A.37 37 weeks gestation of pregnancy
CPT/HCPCS: 59050; 85025; 86850; 86900; 86901; G0379; J1885; J2590

== ENCOUNTER 2024-12-30 12:36 | Emergency (ER) | payer MEDICAID, SELFPAY ==
[2024-12-30 12:39] VITALS: BP 113/63; PULSE 81; RESP 18; TEMP 36.5; O2SAT 99; BMI 33.6
[2024-12-30 13:48] LABS: Strep Grp A by PCR Rapid Negative (Negative)
--- NOTE | 2024-12-30 13:57 | ED.URI ---
HPI - URI/Sore Throat <Mary Valerio PA-C - Last Filed: 12/30/24 17:17> General Chief Complaint: Upper Respiratory Symptoms Stated Complaint: sent by clinic, julia in throat Time Seen by Provider: 12/30/24 12:48 Source: patient Mode of arrival: Ambulatory History of Present Illness HPI Narrative: 29-year-old female presents to the ED with 10 days of right-sided throat pain, tonsillar swelling, neck pain. Patient was seen at a walk-in clinic, tested negative for strep throat. Patient denies fever, chills, chest pain, shortness of breath, nausea, vomiting. Patient is able to manage her secretions well. Related Data Home Medications Medication Instructions Recorded Confirmed vit no.95-ferrous 1 tab PO DAILY 01/24/24 04/09/24 fumarate 28 mg-folic acid 800 mcg tablet ( Multivitamins) Previous Rx's Medication Instructions Recorded penicillin V potassium 500 mg 500 mg PO TID 10 days #30 tabs 12/30/24 tablet Allergies Allergy/AdvReac Type Severity Reaction Status Date / Time No Known Drug Allergies Allergy Verified 04/09/24 09:56 Review of Systems <Mary Valerio PA-C - Last Filed: 12/30/24 17:17> Constitutional Constitutional: Denies chills, Denies fatigue, Denies fever(s), Denies frequent falls, Denies lethargy and Denies weakness Eyes Eyes: Denies change in vision, Denies eye discharge, Denies irritation and Denies loss of vision ENT Ears, Nose, Mouth, and Throat: Denies change in voice, Denies dizziness, Reports neck pain and Reports sore throat Cardiovascular Cardiovascular: Denies chest pain, Denies irregular heart rhythm, Denies lightheadedness, Denies palpitations, Denies dyspnea, Denies dyspnea on exertion and Denies orthopnea Respiratory Respiratory: Denies cough, Denies dyspnea, Denies dyspnea on exertion and Denies wheezing Gastrointestinal Gastrointestinal: Denies abdominal pain, Denies change in bowel habits, Denies diarrhea, Denies nausea and Denies vomiting Musculoskeletal Musculoskeletal: Reports neck pain and Denies numbness Integumentary/Breasts Skin/Breast: Denies pruritus, Denies erythema, Denies rash and Denies wounds Neurologic Neurologic: Denies behavioral changes, Denies confusion, Denies dizziness, Denies frequent falls, Denies loss of vision, Denies numbness and Denies weakness Psychiatric Psychiatric: Denies anxiety, Denies behavioral changes, Denies confusion, Denies depression, Denies homicidal ideation and Denies suicidal ideation Endocrine Endocrine: Denies fatigue, Denies flushing and Denies palpitations Hematologic/Lymphatic Hematologic/Lymphatic: Denies easy bruising Allergic/Immunologic Allergic/Immunologic: Denies urticaria and Denies wheezing Patient History <Mary Valerio PA-C - Last Filed: 12/30/24 17:17> Medical History depression Asthma Constipation Impetigo Surgical History History of dental surgery Family History Mother Fibromyalgia Brother Asthma Family/Other Asthma Aunt Rheumatoid arthritis Aunt Uterine cancer Social History marital status: number of children: 4 household members: spouse, family and children lives independently: Yes caregiver/support person: Yes housing: house pets and animals: Yes (4 dogs, snake, lizard) education level: college occupational status: unemployed current occupational exposures/hazards: No special toyin needs: No travel history: over 6 months ago seatbelt use: always helmet use: Yes water heater temp set < 120 deg: Yes working smoke detector in home: Yes fire extinguisher in home: Yes carbon monox detector in home: Yes firearms in home: No do you feel safe at home: Yes Smoking Status: Former smoker Tobacco: How many years used: 10 second hand exposure: No alcohol intake: never substance use type: does not use during the past year weight has: remained stable well-balanced diet: daily or most days daily servings fruits/ve or more times/day caffeine: No Type(s) of exercise: walking frequency: daily Smoking Status: Former smoker alcohol intake frequency: 0-2 drinks per day Exam <Mary Valerio PA-C - Last Filed: 12/30/24 17:17> Narrative Exam Narrative: Const General:?cooperative, healthy appearing and comfortable HENNV Head:?normal to inspection Ears:?hearing grossly normal bilaterally Nose:?external nose normal Face and sinus:?normal facial exam and sinuses nontender Mouth:?oral mucosae normal Throat:? Right-sided tonsillar swelling, erythema, exudates. Airway is patent. Patient is handling secretions well Eyes General:?appearance normal, both eyes and all related structures Neck Neck:? Right-sided anterior lymphadenopathy Resp Effort & Inspection:?normal respiratory effort Auscultation:?clear to auscultation bilaterally Cardio Rate:?regular rate Rhythm:?regular rhythm Neuro General:?patient alert, patient awake and patient oriented x3 Initial Vital Signs Initial Vital Signs: Vital Signs Temperature 97.7 F 12/30/24 12:39 Pulse Rate 81 12/30/24 12:39 Respiratory Rate 18 12/30/24 12:39 Blood Pressure 113/63 12/30/24 12:39 Pulse Oximetry 99 12/30/24 12:39 Oxygen Delivery Method Room Air 12/30/24 12:39 <Nura Avila MD - Last Filed: 12/31/24 07:49> Initial Vital Signs Initial Vital Signs: Vital Signs Temperature 97.7 F 12/30/24 12:39 Pulse Rate 81 12/30/24 12:39 Respiratory Rate 18 12/30/24 12:39 Blood Pressure 113/63 12/30/24 12:39 Pulse Oximetry 99 12/30/24 12:39 Oxygen Delivery Method Room Air 12/30/24 12:39 Course <Mary Valerio PA-C - Last Filed: 12/30/24 17:17> Orders Ordered: Discontinued Medications Dexamethasone (Dexamethasone 10 Mg/Ml Vial) 10 mg PO NOW ONE Stop: 12/30/24 14:29 Last Admin: 12/30/24 14:54 Dose: 10 mg Documented By: SONY Ketorolac Tromethamine (Ketorolac 30 Mg/Ml Vial) 30 mg IM NOW ONE Stop: 12/30/24 14:29 Last Admin: 12/30/24 14:54 Dose: 30 mg Documented By: SONY Vital Signs Vital signs: Vital Signs - 8 hr 12/30/24 12:39 12/30/24 15:42 Temperature 97.7 F Pulse Rate 81 75 Respiratory Rate 18 18 Blood Pressure 113/63 124/56 L Pulse Oximetry 99 100 Oxygen Delivery Method Room Air Room Air <Nura Avila MD - Last Filed: 12/31/24 07:49> Orders Ordered: Discontinued Medications Dexamethasone (Dexamethasone 10 Mg/Ml Vial) 10 mg PO NOW ONE Stop: 12/30/24 14:29 Last Admin: 12/30/24 14:54 Dose: 10 mg Documented By: SONY Ketorolac Tromethamine (Ketorolac 30 Mg/Ml Vial) 30 mg IM NOW ONE Stop: 12/30/24 14:29 Last Admin: 12/30/24 14:54 Dose: 30 mg Documented By: SONY Vital Signs Vital signs: Vital Signs - 8 hr 12/30/24 12:39 12/30/24 15:42 Temperature 97.7 F Pulse Rate 81 75 Respiratory Rate 18 18 Blood Pressure 113/63 124/56 L Pulse Oximetry 99 100 Oxygen Delivery Method Room Air Room Air MDM - URI/Sore Throat <Mary Valerio PA-C - Last Filed: 12/30/24 17:17> Lab Data Labs: Lab Results 12/30/24 12/30/24 Range/Units 13:00 14:58 Monoscreen Negative (Negative) Group A Strep (PCR) Negative (Negative) MDM Narrative Medical decision making narrative: 29-year-old female presents to the ED with 10 days of right-sided throat pain, tonsillar swelling, neck pain. Strep POC negative in the ED. sample sent for culture. [place] test was obtained which was also negative. Empirically treated with antibiotics for strep pharyngitis. Patient was also given a dose of Toradol and dexamethasone in the ED with significant relief. ED return precautions were discussed with patient. Patient verbalized understanding. Medical records reviewed: Yes <Nura Avila MD - Last Filed: 12/31/24 07:49> Lab Data Labs: Lab Results 12/30/24 12/30/24 Range/Units 13:00 14:58 Monoscreen Negative (Negative) Group A Strep (PCR) Negative (Negative) Discharge Plan Departure Patient Disposition: Home Clinical Impression: Autoimmune disorder Pharyngitis Qualifiers: Pharyngitis/tonsillitis etiology: unspecified etiology Qualified Code(s): J02.9 - Acute pharyngitis, unspecified Instructions: DI for Strep Throat Activity Restrictions/Additional Instructions: You were evaluated in the ED today for a sore throat. Your strep test and mono test were negative. The sample has also been sent for culture for further verification. Given that your tonsils on the right side appear very swollen, red and with pus, you are being prescribed antibiotics to treat a possible strep throat. Please take them as prescribed. You may also take Tylenol, ibuprofen for pain. Please follow-up with your PCP as soon as possible. Return to the ED if you have worsening symptoms, shortness of breath, trouble swallowing. Prescriptions: New penicillin V potassium 500 mg tablet 500 mg PO TID 10 Days Qty: 30 0RF No Action PNV cmb#95-ferrous fumarate-FA [ Multivitamins] 28 mg iron- 800 mcg tablet 1 tab PO DAILY Referrals: Artie Del Angel MD [Primary Care Provider] - Stand Alone Forms: Patient Portal/API/Survey ED Sign-out <Nura Avila MD - Last Filed: 12/31/24 07:49> Cosign ED Attending [place] Attestation: I was immediately available in the department for consultation. ?This documentation has been reviewed and I agree with assessment and plan. Supervised by Nura Avila MD
[2024-12-30] MEDS: DEXAMETHASONE 10 MG/ML VIAL PO (14:54)
[2024-12-30] MEDS: KETOROLAC 30 MG/ML VIAL IM (14:54)
[2024-12-30 15:16] LABS: Monotest Negative (Negative)
[2024-12-30 15:42] VITALS: BP 124/56; PULSE 75; RESP 18; O2SAT 100
== END 2024-12-30 15:43 | disposition home or self-care (01) ==
PROVIDERS: Emergency Provider Student in an Organized Health Care Education/Training Program; PCP Family Medicine
DX: J02.9 Acute pharyngitis, unspecified (principal); M54.2 Cervicalgia; D89.89 Other specified disorders involving the immune mechanism, not elsewhere classified
CPT/HCPCS: 36415; 86318; 87651; 96372; 99283; J1100; J1885

== ENCOUNTER → 2025-01-12 07:40 | Outpatient (CLI) | payer MEDICAID, SELFPAY ==
--- NOTE | 2025-01-12 07:41 | DI.US.S_ITS ---
PROCEDURE: US ABDOMEN LIMITED INDICATIONS: GALLBLADDER POLYP TECHNIQUE: Real-time scanning was performed of the abdominal and retroperitoneal organs, with image documentation. COMPARISON: [facility], , US ABDOMEN LIMITED, 11/11/2020, 8:08. FINDINGS: Liver: Liver is normal in size and homogeneous in echotexture. Gallbladder: Multiple foci of increased echogenicity are identified. Previous presumed polyp is unchanged. No wall thickening. No pericholecystic edema. Negative sonographic Thomas's sign. Biliary ducts: Intrahepatic bile ducts are non-dilated. Extrahepatic bile duct caliber measures 3.6 mm. Normal is 6-7 mm or less in diameter, or 10 mm or less post-cholecystectomy. Pancreas: Visualized portions of the pancreas are sonographically normal. Miscellaneous: No free abdominal fluid. IMPRESSION: Presumed polyp unchanged. Otherwise, cholelithiasis without wall thickening. Dictated by: Molly Herron M.D. on 01/12/2025 at 15:06 Approved by: Molly Herron M.D. on 01/12/2025 at 15:06
== END ==
PROVIDERS: PCP Family Medicine; Referring Provider Registered Nurse; Visit Provider Registered Nurse
DX: K82.4 Cholesterolosis of gallbladder (principal)
CPT/HCPCS: 76705

== ENCOUNTER 2025-01-21 00:46 | Emergency (ER) | payer MEDICAID, SELFPAY ==
[2025-01-21] VITALS (10 sets, daily range): BP systolic 103–131; BP diastolic 59–67; PULSE 72–85; RESP 16–18; TEMP 36.7; O2SAT 98–100; BMI 32.5
--- NOTE | 2025-01-21 01:12 | ED.BACK ---
HPI - Back Pain/Injury General Chief Complaint: Back Pain/Injury Stated Complaint: feels gallbladder pain all day Time Seen by Provider: 01/21/25 01:12 Source: patient History of Present Illness HPI Narrative: 29-year-old female presenting for abdominal pain, states it is to her right upper abdomen/gallbladder area, states he has known gallstones, states that she has nausea but no vomiting did try taking Tylenol and ibuprofen around 8:00 a.m. without any relief therefore decided come into the ED for further evaluation treatment. She states that she did get a recent ultrasound of her abdomen due to follow up of history of polyps to her gallbladder. She denies any other symptoms such as headache visual disturbances chest pain shortness breath fever chills or any other GI/ symptoms time. Related Data Home Medications Medication Instructions Recorded Confirmed vit no.95-ferrous 1 tab PO DAILY 01/24/24 04/09/24 fumarate 28 mg-folic acid 800 mcg tablet ( Multivitamins) Allergies Allergy/AdvReac Type Severity Reaction Status Date / Time No Known Drug Allergies Allergy Verified 04/09/24 09:56 Review of Systems Review of Systems Narrative: General: Denies fever, chills, weight loss HEENT: Denies headache, eye drainage, eye irritation, head trauma, sore throat, voice change Cardiovascular: Denies any chest pain, palpitations, tachycardia Respiratory: Denies any shortness of breath, cough, wheeze, stridor GI/: Positive epigastric/right upper quadrant abdominal pain, nausea, denies vomiting, diarrhea, bright red blood per rectum, melanotic stools, urinary frequency, urinary retention, dysuria, hematuria MSK: Denies any joint pain, muscle pains, swelling Skin: Denies any rashes, lesions, discoloration Neuro: Denies any headache, lightheadedness, dizziness, fainting, weakness Psych: Denies SI/HI Patient History Medical History depression Asthma Constipation Impetigo Surgical History History of dental surgery Family History Mother Fibromyalgia Brother Asthma Family/Other Asthma Aunt Rheumatoid arthritis Aunt Uterine cancer Social History marital status: number of children: 4 household members: spouse, family and children lives independently: Yes caregiver/support person: Yes housing: house pets and animals: Yes (4 dogs, snake, lizard) education level: college occupational status: unemployed current occupational exposures/hazards: No special toyin needs: No travel history: over 6 months ago seatbelt use: always helmet use: Yes water heater temp set < 120 deg: Yes working smoke detector in home: Yes fire extinguisher in home: Yes carbon monox detector in home: Yes firearms in home: No do you feel safe at home: Yes Smoking Status: Never smoker Tobacco: How many years used: 10 second hand exposure: No alcohol intake: never substance use type: does not use during the past year weight has: remained stable well-balanced diet: daily or most days daily servings fruits/ve or more times/day caffeine: No Type(s) of exercise: walking frequency: daily Smoking Status: Never smoker alcohol intake frequency: 0-2 drinks per day Exam Narrative Exam Narrative: General: Cooperative, well-developed, not in acute distress HEENT: Normocephalic, atraumatic, PERRLA, normal sclera, eyelids normal Neck: Active full range of motion, atraumatic Chest: Normal to inspection, negative crepitus, no overlying erythema ecchymosis Respiratory: Normal respiratory effort, not in acute respiratory distress, clear to auscultation bilaterally negative cough, wheeze, tachypnea, rhonchi, rales Cardiology: Regular rate rhythm negative gallop, murmur, rubs GI/: Mild epigastric/right upper quadrant tenderness to palpation, soft, non rigid, normal to inspection, exam deferred MSK: Full active range of motion in all 4 extremities, atraumatic, no tenderness to palpation of any bony prominences Skin: No rashes or lesions noted Neuro: Alert awake oriented x3, moves all 4 extremities spontaneously, cranial nerves intact, able to answer all questions appropriately follows commands appropriately Psych: Cooperative, negative suicidal or homicidal ideations Initial Vital Signs Initial Vital Signs: Vital Signs Temperature 98.1 F 01/21/25 00:52 Pulse Rate 85 01/21/25 00:52 Respiratory Rate 18 01/21/25 00:52 Blood Pressure 131/67 01/21/25 00:52 Pulse Oximetry 98 01/21/25 00:52 Oxygen Delivery Method Room Air 01/21/25 00:52 Course Orders Ordered: ED Orders 01/21/25 01:13 EKG-12 Lead Stat 01/21/25 01:14 CT abdomen pelvis w con Stat 01/21/25 01:17 US abdomen limited Stat 01/21/25 01:19 CXR [XR chest 1V] Stat 01/21/25 01:30 Complete Blood Count AUTO DIFF Stat Comprehensive Metabolic Panel Stat Lactate (Lactic Acid) Stat Lipase Stat MAG [Magnesium] Stat NT-proBNP (BNP-Adult 18+) Stat Troponin & CK Cardiac Panel Stat Discontinued Medications Sodium Chloride (Normal Saline 0.9%) 1,000 mls @ 1,000 mls/hr IV BOLUS ONE Stop: 01/21/25 02:12 Last Infusion: 01/21/25 02:33 Dose: Infused Documented By: Admin: 01/21/25 01:23 Dose: 1,000 mls/hr Documented By: Morphine Sulfate (Morphine 4 Mg/Ml Inj) 4 mg IV NOW ONE Stop: 01/21/25 01:18 Last Admin: 01/21/25 01:22 Dose: 4 mg Documented By: Ondansetron HCl (Ondansetron 4 Mg/2 Ml Inj) 4 mg IV NOW ONE Stop: 01/21/25 01:18 Last Admin: 01/21/25 01:23 Dose: 4 mg Documented By: Vital Signs Vital signs: Vital Signs - 8 hr 01/21/25 00:52 01/21/25 01:00 01/21/25 01:30 Temperature 98.1 F Pulse Rate 85 85 72 Respiratory Rate 18 Blood Pressure 131/67 Pulse Oximetry 98 99 100 Oxygen Delivery Method Room Air 01/21/25 02:00 01/21/25 02:30 01/21/25 03:00 Temperature Pulse Rate 79 83 84 Respiratory Rate 18 Blood Pressure Pulse Oximetry 100 99 99 Oxygen Delivery Method MDM - Back Pain/Injury Differential Diagnosis Differential diagnosis: Likely other (ACS, pneumonia, electrolyte abnormality, cholecystitis, cholelithiasis) Lab Data 01/21/25 01:30 01/21/25 01:30 Labs: Lab Results 01/21/25 Range/Units 01:30 WBC 7.3 (4.5-11.0) X10^3/uL RBC 4.75 (4.0-5.2) X10^6/uL Hgb 14.2 (12.0-16.0) g/dL Hct 40.5 (36-46) % MCV 85.2 (80-100) fL MCH 29.8 (26-34) PG MCHC 35.0 (30-36) % RDW 12.7 (11.6-14.8) % Plt Count 509 H (150-400) X10^3/uL Neut % (Auto) 75.7 H (50-75) % Lymph % (Auto) 18.3 L (25-40) % [place]ax % (Auto) 4.4 (3-14) % Eos % (Auto) 1.2 L (2-4) % Baso % (Auto) 0.4 (0-2) % Neut # (Auto) 5500 (6801-3656) /uL Lymph # (Auto) 1300 (4250-1693) /uL [place] # (Auto) 300 (0-900) /uL Eos # (Auto) 100 (0-450) /uL Baso # (Auto) 0 (0-100) /uL Sodium 139 (137-145) mmol/L Potassium 3.5 (3.4-5.1) mmol/L Chloride 105 (98-107) mmol/L Carbon Dioxide 27 (22-32) mmol/L BUN 12 (7-17) mg/dL Creatinine 0.78 (0.52-1.04) mg/dL Estimated GFR > 60 (>60) mL/min BUN/Creatinine Ratio 15.4 (6-22) Glucose 101 H (70-100) mg/dL Lactate 0.5 L (0.7-2.1) mmol/L Calcium 9.3 (8.4-10.2) mg/dL Magnesium 2.0 (1.6-2.3) mg/dL Total Bilirubin 0.5 (0.2-1.3) mg/dL AST 34 (14-36) IU/L ALT 48 H (<35) IU/L Alkaline Phosphatase 172 H (38-126) U/L Total Creatine Kinase 40 (30-135) U/L Troponin I < 0.012 (0.01-0.034) ng/mL NT-Pro-B Natriuret Pep < 20 (<125) pg/mL Total Protein 8.0 (6.3-8.2) g/dL Albumin 4.5 (3.5-5.0) g/dL Globulin 3.5 (1.7-4.1) g/dL Albumin/Globulin Ratio 1.3 (1.0-2.8) Lipase 42 (23-300) U/L Imaging Data CT scan - abdomen/pelvis: Radiologist's Impression: Preliminary read showing no definitive acute process, tiny gallbladder polyp noted, mild fecal retention within the colon otherwise unremarkable Chest x-ray: Radiologist's Impression: [address] [address] XRay Report Signed Patient: Sheri Nixon MR#: [id number] : 1995 Acct:[id number] Age/Sex: 29 / F Date of Service: 01/21/25 Loc: ED Accession Number: [id number] Procedure: XR chest 1V Ordering Provider: Brandt Victor D.O. PROCEDURE: XR CHEST 1V INDICATIONS: Epigastric pain TECHNIQUE: One view of the chest was acquired. COMPARISON: None. FINDINGS: Surgical changes and devices: None. Lungs and pleura: Lungs are clear. No pleural effusions or pneumothorax. Mediastinum: Mediastinal contours appear normal. Heart size is normal. Bones and chest wall: No suspicious bony lesions. Overlying soft tissues appear unremarkable. IMPRESSION: No acute pulmonary process. US - abdomen: Radiologist's Impression: Preliminary read showing cholelithiasis without evidence of cholecystitis, benign gallbladder polyp stable unchanged ECG Data Interpretation: EKG interpreted ED physician sinus 70 beats per minute QTC [address] changes no STEMI MDM Narrative Medical decision making narrative: 29-year-old female with a history of known gallbladder polyp coming in for epigastric/right upper quadrant abdominal pain, she states that symptoms started earlier today, does endorse nausea no vomiting. Patient had ultrasound last week that showed stable gallbladder polyp with cholelithiasis without gallbladder wall thickening. Patient had lab work imaging EKG performed here in the emergency department. Patients lab work without any leukocytosis, Chem panel unremarkable, patient noted to have elevated alk-phos at 172, AST 34, ALT 48, bilirubin 0.5, troponin negative, BNP less than 20, chest x-ray without any acute cardiopulmonary abnormalities, CT scan without any acute processes, patient did have improvement of symptoms after administration of medication here, patient was instructed to follow up with primary care and general surgery for possible symptomatic cholelithiasis without acute cholecystitis, patient was given strict return precautions she verbalized understanding of this and agrees to being discharged home with outpatient follow up Discharge Plan Departure Patient Disposition: Home Clinical Impression: Cholelithiasis, Abdominal pain Activity Restrictions/Additional Instructions: Please follow up with your primary care doctor and General surgery Please read the discharge instructions sheet carefully and bring all papers to all doctor follow-up visits, as it may contain information that your doctor may want to see. Disease processes change and evolve, if your symptoms worsen or if you develop any new symptoms that are concerning to you please return for evaluation. Your evaluation today does not show any evidence of any life-threatening/serious illnesses requiring admission to the hospital or surgery. Please follow-up with your doctor for re-evaluation in approximately 1 day. Seek immediate medical attention for any worrisome symptoms. *If you do not have a primary care provider please contact the [facility] Resource line at [phone]. They will ask some questions about your medical history and help get you set up with a doctor in the community. Prescriptions: No Action PNV cmb#95-ferrous fumarate-FA [ Multivitamins] 28 mg iron- 800 mcg tablet 1 tab PO DAILY Referrals: Artie Del Angel MD [Primary Care Provider] - Tong Churchill MD [Physician] - Stand Alone Forms: Patient Portal/API/Survey
--- NOTE | 2025-01-21 01:13 | EKG_ITS ---
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
--- NOTE | 2025-01-21 01:14 | DI.CT.S_ITS ---
PROCEDURE: CT ABDOMEN PELVIS W CON INDICATIONS: Right upper quadrant/epigastric pain TECHNIQUE: After the administration of intravenous contrast, axial sections acquired from the lung bases to the pubic symphysis. Coronal and sagittal reformats were performed. For radiation dose reduction, the following was used: automated exposure control, adjustment of mA and/or kV according to patient size. COMPARISON: None. FINDINGS: Image quality: Diagnostic. Lower Chest: No significant findings. ABDOMEN: Liver: No solid mass. Gallbladder: Small gallbladder polyp is noted, better evaluated on same-day ultrasound. Gallstones are not appreciated on CT. Biliary ducts: No biliary dilation. Pancreas: No ductal dilation. Spleen: Size is within normal limits. Small splenule is noted. Adrenal Glands: No adrenal nodules. Kidneys and Ureters: No hydronephrosis. No solid mass. No complex renal cystic lesion which requires follow up. Stomach and Bowel: Normal colonic caliber, without significant wall thickening. Mild fecal loading throughout the colon. Normal appendix. Peritoneum: No abnormal intraperitoneal fluid. No free air. Ventral Wall: No significant ventral hernia. Abdominal Nodes: No retroperitoneal or mesenteric adenopathy by size criteria. Vessels: Aorta and inferior vena cava are normal in size. PELVIS: Pelvic Organs: Intrauterine device in place. Bladder: No bladder wall thickening, accounting for underdistention. Pelvic Nodes: No enlarged lymph nodes. Miscellaneous: No inguinal hernias are seen. Bones: No aggressive osseous abnormality. IMPRESSION: 1. No acute findings within the abdomen or pelvis. 2. Mild fecal retention within the colon, correlate for constipation. 3. Small gallbladder polyp, better evaluated on same-day ultrasound. Findings are concordant with preliminary interpretation provided by [facility]. Dictated by: Marc Briscoe M.D. on 01/21/2025 at 8:13 Approved by: Marc Briscoe M.D. on 01/21/2025 at 8:23
--- NOTE | 2025-01-21 01:17 | DI.US.S_ITS ---
PROCEDURE: US ABDOMEN LIMITED INDICATIONS: RUQ abd pain, hx of stones and polyp TECHNIQUE: Real-time scanning was performed of the abdominal and retroperitoneal organs, with image documentation. COMPARISON: [facility], US, US ABDOMEN LIMITED, 01/12/2025, 7:53. FINDINGS: Liver: Liver is mildly enlarged measuring 17.4 cm and homogeneous in echotexture. Gallbladder: Several nonobstructing stones measuring up to 6 mm. Polyp measuring 8 mm along the anterior wall. No wall thickening. No pericholecystic edema. Negative sonographic Thomas's sign. Biliary ducts: Intrahepatic bile ducts are non-dilated. Extrahepatic bile duct caliber measures 5.6 mm. Normal is 6-7 mm or less in diameter, or 10 mm or less post-cholecystectomy. Pancreas: Visualized portions of the pancreas are sonographically normal. Miscellaneous: No free abdominal fluid. IMPRESSION: 1. Cholelithiasis without sonographic evidence of acute cholecystitis. 2. Stable gallbladder polyp. 3. Mild hepatomegaly. Findings are concordant with preliminary interpretation provided by [facility]. Dictated by: Marc Briscoe M.D. on 01/21/2025 at 8:12 Approved by: Mrac Briscoe M.D. on 01/21/2025 at 8:13
--- NOTE | 2025-01-21 01:19 | DI.RAD.S_ITS ---
PROCEDURE: XR CHEST 1V INDICATIONS: Epigastric pain TECHNIQUE: One view of the chest was acquired. COMPARISON: None. FINDINGS: Surgical changes and devices: None. Lungs and pleura: Lungs are clear. No pleural effusions or pneumothorax. Mediastinum: Mediastinal contours appear normal. Heart size is normal. Bones and chest wall: No suspicious bony lesions. Overlying soft tissues appear unremarkable. IMPRESSION: No acute pulmonary process. Dictated by: Molly Herron M.D. on 01/21/2025 at 1:43 Approved by: Molly Herron M.D. on 01/21/2025 at 1:44
[2025-01-21] MEDS: MORPHINE 4 MG/ML INJ IV (01:22)
[2025-01-21] MEDS: ONDANSETRON 4 MG/2 ML INJ IV (01:23)
[2025-01-21] MEDS: SODIUM CHLORIDE 0.9% 1,000 ML 1000 ML IV (01:23)
[2025-01-21 01:44] LABS: Add Manual Diff / Slide Review NO; Basophils Absolute Auto 0 /uL (0-100); Basophils Percent Auto 0.4 % (0-2); Eosinophils Absolute Auto 100 /uL (0-450); Eosinophils Percent Auto 1.2 % (2-4); Hematocrit 40.5 % (36-46); Hemoglobin 14.2 g/dL (12.0-16.0); Lymphocytes Absolute Auto 1300 /uL (1100-4500); Lymphocytes Percent Auto 18.3 % (25-40); Mean Corpuscular Hemoglobin 29.8 PG (26-34); Mean Corpuscular Volume 85.2 fL (80-100); Monocytes Absolute Auto 300 /uL (0-900); Monocytes Percent Auto 4.4 % (3-14); Neutrophils Absolute Auto 5500 /uL (1500-7000); Neutrophils Percent Auto 75.7 % (50-75); Platelet Count 509 X10^3/uL (150-400); Red Blood Cell Count 4.75 X10^6/uL (4.0-5.2); Red Cell Distribution Width 12.7 % (11.6-14.8); White Blood Cell Count 7.3 X10^3/uL (4.5-11.0)
[2025-01-21 01:53] LABS: Alanine Aminotransferase 48 IU/L (<35); Albumin 4.5 g/dL (3.5-5.0); Albumin Globulin Ratio 1.3 (1.0-2.8); Alkaline Phosphatase 172 U/L (38-126); Aspartate Aminotransferase 34 IU/L (14-36); BUN Creatinine Ratio 15.4 (6-22); Bilirubin Total 0.5 mg/dL (0.2-1.3); Blood Urea Nitrogen 12 mg/dL (7-17); Calcium 9.3 mg/dL (8.4-10.2); Carbon Dioxide 27 mmol/L (22-32); Chloride 105 mmol/L (98-107); Creatine Kinase 40 U/L (30-135); Estimated Glomerular Filt Rate > 60 mL/min (>60); Globulin 3.5 g/dL (1.7-4.1); Glucose 101 mg/dL (70-100); HEMOLYSIS < 15 (0-50); Lipase 42 U/L (23-300); Potassium 3.5 mmol/L (3.4-5.1); Sodium 139 mmol/L (137-145)
[2025-01-21 01:54] LABS: Lactate (Lactic Acid) 0.5 mmol/L (0.7-2.1)
[2025-01-21 02:05] LABS: NT-proBNP (BNP-Adult 18+) < 20 pg/mL (<125); Troponin I < 0.012 ng/mL (0.01-0.034)
[2025-01-21] MEDS: OXYCODONE/APAP 5/325 PREPACK 1 BOTTLE MISC (04:50)
== END 2025-01-21 05:03 | disposition home or self-care (01) ==
PROVIDERS: Emergency Provider Student in an Organized Health Care Education/Training Program; PCP Family Medicine
DX: K80.20 Calculus of gallbladder without cholecystitis without obstruction (principal); R10.11 Right upper quadrant pain
CPT/HCPCS: 36415; 71045; 74177; 76705; 80053; 82550; 83605; 83690; 83735; 83880; 84484; 85025; 93005; 96361; 96374; 96375; 99284; J2270; J2405; Q9967

== ENCOUNTER 2025-06-14 01:29 | Observation (INO) | payer MEDICAID, SELFPAY ==
[2025-06-14] VITALS (21 sets, daily range): BP systolic 97–128; BP diastolic 46–68; PULSE 63–88; RESP 11–18; TEMP 35.7–36.5; O2SAT 96–100; BMI 34.9
--- NOTE | 2025-06-14 | PATH_ITS ---
[facility] Accession Number: [id number] No. of containers..01 Tissue . 01 Material submitted: . gallbladder - GALLBLADDER . 01 Diagnosis: GALLBLADDER, CHOLECYSTECTOMY: Cholelithiasis. Chronic cholecystitis. Cholesterolosis. One benign lymph node. No neoplasm is identified. [facility] 06/24/2025 1037 Local . 01 Electronically signed: . Artie Dwyer MD, Dermatopathologist NPI- [id number] . 01 Gross description: . Received in formalin with two identifiers and gallbladder is an intact gallbladder, 7.5 x 2.9 x 2.6 cm, with a slightly rough and violaceous external surface. The cystic duct margin is inked blue and a brown lymph node candidate measures 0.7 cm in greatest dimension. The lumen contains multiple yellow, bosselated calculi, up to 0.6 cm in greatest dimension admixed with dark green mucoid bile. The mucosa is green and velvety with numerous yellow areas of discoloration and no polyps or lesions identified. The contreras average 0.5 cm thick. Guide Excursion sections to include the cystic duct margin, intact lymph node candidate, and full thickness sections are submitted in A1. ([id number]) /MRV 06/23/2025 1730 Local . 01 Pathologist provided ICD-10: K80.10 . 01 CPT . 892818 Specimen Comment: A courtesy copy of this report has been sent to [facility] Pathology Performed at: [address] [id number] MD Sid Miles MD Phone: [phone]
[2025-06-14] MEDS: ONDANSETRON 4 MG/2 ML INJ IV ×3 (01:56→13:12)
--- NOTE | 2025-06-14 02:01 | DI.US.S_ITS ---
PROCEDURE: US ABDOMEN LIMITED INDICATIONS: RUQ pain hx of gall stones TECHNIQUE: Real-time scanning was performed of the abdominal and retroperitoneal organs, with image documentation. COMPARISON: [facility], , US ABDOMEN LIMITED, 01/21/2025, 1:58. FINDINGS: Liver: Liver is normal in size and homogeneous in echotexture. Gallbladder: The gallbladder is moderately distended and there are multiple tiny layering stones. The gallbladder wall is thin walled measuring 2-3 mm. Sonographic Thomas sign is reportedly positive. Biliary ducts: Intrahepatic bile ducts are non-dilated. The common bile duct is 3 mm in diameter. Pancreas: Visualized portions of the pancreas are sonographically normal. Miscellaneous: No free abdominal fluid. IMPRESSION: Cholelithiasis with a reportedly positive sonographic Thomas sign, suggestive of acute cholecystitis. There are no secondary signs of cholecystitis such as significant wall thickening or pericholecystic fluid. This is concordant with the preliminary interpretation. Dictated by: Marielena Denis M.D. on 06/14/2025 at 8:19 Approved by: Marielena Denis M.D. on 06/14/2025 at 8:27
--- NOTE | 2025-06-14 02:01 | DI.CT.S_ITS ---
PROCEDURE: CT ABDOMEN PELVIS W CON INDICATIONS: RUQ pain hx of gall stones TECHNIQUE: After the administration of intravenous contrast, axial sections acquired from the lung bases to the pubic symphysis. Coronal and sagittal reformats were performed. For radiation dose reduction, the following was used: automated exposure control, adjustment of mA and/or kV according to patient size. COMPARISON: [facility], CT, CT ABDOMEN PELVIS W CON, 01/21/2025, 2:06. FINDINGS: Image quality: Diagnostic. Lower Chest: No significant findings. ABDOMEN: Liver: No solid mass. Gallbladder: Mildly distended without wall thickening or pericholecystic fluid. No radiopaque stones. Biliary ducts: No biliary dilation. Pancreas: No ductal dilation. Spleen: Size is within normal limits. Adrenal Glands: No adrenal nodules. Kidneys and Ureters: No hydronephrosis. No solid mass. No complex renal cystic lesion which requires follow up. Stomach and Bowel: Normal colonic caliber, without significant wall thickening. Peritoneum: No abnormal intraperitoneal fluid. No free air. Ventral Wall: No significant ventral hernia. Abdominal Nodes: No retroperitoneal or mesenteric adenopathy by size criteria. Vessels: Aorta and inferior vena cava are normal in size. PELVIS: Pelvic Organs: Unremarkable. An IUD is present Bladder: No bladder wall thickening, accounting for underdistention. Pelvic Nodes: No enlarged lymph nodes. Miscellaneous: No inguinal hernias are seen. . There is a tiny fat containing umbilical hernia. Bones: No aggressive osseous abnormality. IMPRESSION: No CT evidence for the etiology of the patient's symptoms. Specifically, no overt cholecystitis, urolithiasis, or acute bowel process. This is concordant with the preliminary interpretation. Dictated by: Marielena Denis M.D. on 06/14/2025 at 8:35 Approved by: Marielena Denis M.D. on 06/14/2025 at 8:39
[2025-06-14 02:08] LABS: Add Manual Diff / Slide Review NO; Hematocrit 38.5 % (36-46); Hemoglobin 13.4 g/dL (12.0-16.0); Lymphocytes Absolute Auto 1900 /uL (1100-4500); Mean Corpuscular HGB Conc 34.7 % (30-36); Mean Corpuscular Hemoglobin 29.0 PG (26-34); Mean Corpuscular Volume 83.6 fL (80-100); Platelet Count 481 X10^3/uL (150-400)
[2025-06-14 02:18] LABS: Alanine Aminotransferase 56 IU/L (<35); Albumin 4.4 g/dL (3.5-5.0); Albumin Globulin Ratio 1.3 (1.0-2.8); Alkaline Phosphatase 157 U/L (38-126); Blood Urea Nitrogen 11 mg/dL (7-17); Calcium 9.0 mg/dL (8.4-10.2); Carbon Dioxide 29 mmol/L (22-32); Chloride 103 mmol/L (98-107); Estimated Glomerular Filt Rate > 60 mL/min (>60); Globulin 3.4 g/dL (1.7-4.1); Glucose 94 mg/dL (70-99); HEMOLYSIS < 15 (0-50); Lipase 48 U/L (23-300); Magnesium 2.1 mg/dL (1.6-2.3); Potassium 3.4 mmol/L (3.4-5.1); Sodium 140 mmol/L (137-145); Total Protein 7.8 g/dL (6.3-8.2)
--- NOTE | 2025-06-14 02:19 | DI.RAD.S_ITS ---
PROCEDURE: XR CHEST 1V INDICATIONS: epigastric pain TECHNIQUE: One view of the chest was acquired. COMPARISON: [facility], CR, XR CHEST 1V, 01/21/2025, 1:17. FINDINGS: Surgical changes and devices: None. Lungs and pleura: Lungs are clear. No pleural effusions or pneumothorax. Mediastinum: Mediastinal contours appear normal. Heart size is normal. Bones and chest wall: No suspicious bony lesions. Overlying soft tissues appear unremarkable. IMPRESSION: No acute cardiopulmonary abnormality is seen. This is concordant with the preliminary interpretation. Dictated by: Marielena Denis M.D. on 06/14/2025 at 8:17 Approved by: Marielena Denis M.D. on 06/14/2025 at 8:18
[2025-06-14 02:31] LABS: Creatine Kinase 41 U/L (30-135)
[2025-06-14 02:35] LABS: HCG Quantitative /Beta subunit < 2.39 mIU/mL
[2025-06-14 02:44] LABS: Troponin I < 0.012 ng/mL (0.01-0.034)
--- NOTE | 2025-06-14 03:23 | EKG_ITS ---
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
--- NOTE | 2025-06-14 03:44 | ED.ABDPAIN ---
HPI - Abdominal Pain General Chief Complaint: Abdominal Pain Stated Complaint: nausea, pain, gallstones Time Seen by Provider: 06/14/25 03:44 Source: patient Mode of arrival: Ambulatory History of Present Illness HPI narrative: Patient is a 29-year-old female with a past medical history of gallbladder stones coming into the ED from home for evaluation of epigastric/right upper quadrant abdominal pain, states that it started at around 11:00 p.m. yesterday, states that she did try taking Tums but without any significant relief therefore came into the ED for further evaluation treatment. She states that she was supposed to follow up with surgery to discuss gallbladder removal but was unable to get in to be seen. He denies any other symptoms such as headache visual disturbances chest pain shortness breath fever chills or any other GI/ symptoms at this time. Related Data Home Medications ?Medication ?Instructions ?Recorded ?Confirmed vit no.95-ferrous 1 tab PO DAILY 01/24/24 04/09/24 fumarate 28 mg-folic acid 800 mcg tablet ( Multivitamins) Allergies Allergy/AdvReac Type Severity Reaction Status Date / Time No Known Drug Allergies Allergy Verified 04/09/24 09:56 Review of Systems Review of Systems Narrative: General: Denies fever, chills, weight loss HEENT: Denies headache, eye drainage, eye irritation, head trauma, sore throat, voice change Cardiovascular: Denies any chest pain, palpitations, tachycardia Respiratory: Denies any shortness of breath, cough, wheeze, stridor GI/: Positive epigastric/right upper quadrant abdominal pain, denies nausea, vomiting, diarrhea, bright red blood per rectum, melanotic stools, urinary frequency, urinary retention, dysuria, hematuria MSK: Denies any joint pain, muscle pains, swelling Skin: Denies any rashes, lesions, discoloration Neuro: Denies any headache, lightheadedness, dizziness, fainting, weakness Psych: Denies SI/HI Patient History Medical History depression Asthma Constipation Impetigo Surgical History History of dental surgery Family History Mother Fibromyalgia Brother Asthma Family/Other Asthma Aunt Rheumatoid arthritis Aunt Uterine cancer Social History marital status: number of children: 4 household members: spouse, family and children lives independently: Yes caregiver/support person: Yes housing: house pets and animals: Yes (4 dogs, snake, lizard) education level: college occupational status: unemployed current occupational exposures/hazards: No special toyin needs: No travel history: over 6 months ago seatbelt use: always helmet use: Yes water heater temp set < 120 deg: Yes working smoke detector in home: Yes fire extinguisher in home: Yes carbon monox detector in home: Yes firearms in home: No do you feel safe at home: Yes Tobacco: How many years used: 10 second hand exposure: No alcohol intake: never substance use type: does not use during the past year weight has: remained stable well-balanced diet: daily or most days daily servings fruits/ve or more times/day caffeine: No Type(s) of exercise: walking frequency: daily alcohol intake frequency: 0-2 drinks per day Exam Narrative Exam Narrative: General: Cooperative, well-developed, not in acute distress HEENT: Normocephalic, atraumatic, PERRLA, normal sclera, eyelids normal Neck: Active full range of motion, atraumatic Chest: Normal to inspection, negative crepitus, no overlying erythema ecchymosis Respiratory: Normal respiratory effort, not in acute respiratory distress, clear to auscultation bilaterally negative cough, wheeze, tachypnea, rhonchi, rales Cardiology: Regular rate rhythm negative gallop, murmur, rubs GI/: Positive Thomas's sign, soft, non rigid, normal to inspection, exam deferred MSK: Full active range of motion in all 4 extremities, atraumatic, no tenderness to palpation of any bony prominences Skin: No rashes or lesions noted Neuro: Alert awake oriented x3, moves all 4 extremities spontaneously, cranial nerves intact, able to answer all questions appropriately follows commands appropriately Psych: Cooperative, negative suicidal or homicidal ideations Initial Vital Signs Initial Vital Signs: Vital Signs Temperature 97.5 F L 06/14/25 01:36 Pulse Rate 80 06/14/25 01:36 Respiratory Rate 18 06/14/25 01:36 Blood Pressure 124/64 06/14/25 01:36 Pulse Oximetry 100 06/14/25 01:36 Oxygen Delivery Method Room Air 06/14/25 01:36 Course Orders Ordered: ED Orders 06/14/25 01:50 Complete Blood Count AUTO DIFF Stat Comprehensive Metabolic Panel Stat HCG Quantitative /Beta subunit Stat Lipase Stat MAG [Magnesium] Stat Troponin & CK Cardiac Panel Stat 06/14/25 02:01 CT abdomen pelvis w con Stat US abdomen limited Stat 06/14/25 02:18 EKG-12 Lead Stat 06/14/25 02:19 CXR [XR chest 1V] Stat Sodium Chloride (Normal Saline 0.9%) 1,000 mls @ 1,000 mls/hr IV BOLUS ONE Stop: 06/14/25 04:50 Last Admin: 06/14/25 03:55 Dose: 1,000 mls/hr Documented By: DOM Ondansetron HCl (Ondansetron 4 Mg/2 Ml Inj) 4 mg IV NOW PRN PRN Reason: Nausea And Vomiting Last Admin: 06/14/25 01:56 Dose: 4 mg Documented By: DOM Ondansetron HCl (Ondansetron 4 Mg Odt) 4 mg PO NOW PRN PRN Reason: Nausea And Vomiting Discontinued Medications Ceftriaxone Sodium 1,000 mg/ (Sodium Chloride) 100 mls @ 200 mls/hr IV NOW ONE Stop: 06/14/25 04:34 Last Admin: 06/14/25 04:47 Dose: 200 mls/hr Morphine Sulfate (Morphine 4 Mg/Ml Inj) 4 mg IV NOW ONE Stop: 06/14/25 03:52 Last Admin: 06/14/25 03:55 Dose: 4 mg Documented By: DOM Ondansetron HCl (Ondansetron 4 Mg/2 Ml Inj) 4 mg IV NOW ONE Stop: 06/14/25 03:52 Last Admin: 06/14/25 03:56 Dose: 4 mg Documented By: DOM Vital Signs Vital signs: Vital Signs - 8 hr 06/14/25 01:36 Temperature 97.5 F L Pulse Rate 80 Respiratory Rate 18 Blood Pressure 124/64 Pulse Oximetry 100 Oxygen Delivery Method Room Air MDM - Abdominal Pain Lab Data 06/14/25 01:50 06/14/25 01:50 Labs: Lab Results 08/31/25 Range/Units 01:50 WBC 8.6 (4.5-11.0) X10^3/uL RBC 4.61 (4.0-5.2) X10^6/uL Hgb 13.4 (12.0-16.0) g/dL Hct 38.5 (36-46) % MCV 83.6 (80-100) fL MCH 29.0 (26-34) PG MCHC 34.7 (30-36) % RDW 13.3 (11.6-14.8) % Plt Count 481 H (150-400) X10^3/uL Neut % (Auto) 70.3 (50-75) % Lymph % (Auto) 21.9 L (25-40) % [place] % (Auto) 4.3 (3-14) % Eos % (Auto) 1.5 L (2-4) % Baso % (Auto) 2.0 (0-2) % Neut # (Auto) 6100 (9450-0287) /uL Lymph # (Auto) 1900 (1853-7967) /uL [place] # (Auto) 400 (0-900) /uL Eos # (Auto) 100 (0-450) /uL Baso # (Auto) 200 H (0-100) /uL Sodium 140 (137-145) mmol/L Potassium 3.4 (3.4-5.1) mmol/L Chloride 103 (98-107) mmol/L Carbon Dioxide 29 (22-32) mmol/L BUN 11 (7-17) mg/dL Creatinine 0.81 (0.52-1.04) mg/dL Estimated GFR > 60 (>60) mL/min BUN/Creatinine Ratio 13.6 (6-22) Glucose 94 (70-99) mg/dL Calcium 9.0 (8.4-10.2) mg/dL Magnesium 2.1 (1.6-2.3) mg/dL Total Bilirubin 0.5 (0.2-1.3) mg/dL AST 34 (14-36) IU/L ALT 56 H (<35) IU/L Alkaline Phosphatase 157 H (38-126) U/L Total Creatine Kinase 41 (30-135) U/L Troponin I < 0.012 (0.01-0.034) ng/mL Total Protein 7.8 (6.3-8.2) g/dL Albumin 4.4 (3.5-5.0) g/dL Globulin 3.4 (1.7-4.1) g/dL Albumin/Globulin Ratio 1.3 (1.0-2.8) Lipase 48 (23-300) U/L HCG, Quant < 2.39 mIU/mL Imaging Data CT scan - abdomen/pelvis: Radiologist's Impression: Preliminary read showing moderate gallbladder distention otherwise no other acute findings ECG Data Interpretation: EKG interpreted by ED physician sinus 75 beats per minute right axis deviation QRS ME interval within normal limits QTC 431 no STEMI MDM Narrative Medical decision making narrative: Patient is a 29-year-old female with a history of gallstones coming into the ED for evaluation of epigastric right upper quadrant abdominal pain worsening over the past several hours, patient states that she was supposed to follow up with surgery but has been unable to get an appointment with them to discuss gallbladder removal. Patient is lab work without any leukocytosis, creatinine normal, patient does have baseline elevated alk-phos, and ALT several months ago was 172 in 48 today 157 and 56 respectively, otherwise bilirubin normal at 0.5 AST 34 and ALT. EKG nonischemic in nature, chest x-ray without any acute cardiopulmonary abnormality, troponin negative, CT scan did show moderate gallbladder distention, ultrasound showing cholelithiasis with wall thickening with positive sonographic Thomas's sign suggestive of acute cholecystitis, given this read 1 g Rocephin ordered call placed out to General surgery The patient's management plan was discussed Dr. Perez, who agrees to admit the patient to their service and assumes care of this patient at this time. Full admission orders will be placed by the primary team. Discharge Plan Departure Patient Disposition: Admitted As Inpatient Clinical Impression: Acute cholecystitis
[2025-06-14] MEDS: MORPHINE 4 MG/ML INJ IV (03:55)
[2025-06-14] MEDS: SODIUM CHLORIDE 0.9% 1,000 ML 1000 ML IV (03:55)
[2025-06-14] MEDS: MORPHINE 2 MG/ML INJ IV ×2 (05:05→09:37)
--- NOTE | 2025-06-14 05:38 | PC.NURSE ---
IVF continued upon tranfer to floor
[2025-06-14] MEDS: SODIUM CHLORIDE 0.9% FLUSH 10 ML IV ×2 (08:03→09:38)
--- NOTE | 2025-06-14 09:24 | PM.HP.IH.1 ---
History of Present Illness History of Present Illness Date Patient Seen: 06/14/25 Time Patient Seen: 09:24 Chief complaint: nausea, pain, gallstones Narrative: 29yo F with acute cholecystitis. Admitted through ED for lap choley today. CT with distended gb, LFT elevations. Rocephin given in ED. U/S several months ago demonstrated gallstones. From ED note: Patient is a 29-year-old female with a past medical history of gallbladder stones coming into the ED from home for evaluation of epigastric/right upper quadrant abdominal pain, states that it started at around 11:00 p.m. yesterday, states that she did try taking Tums but without any significant relief therefore came into the ED for further evaluation treatment. She states that she was supposed to follow up with surgery to discuss gallbladder removal but was unable to get in to be seen. He denies any other symptoms such as headache visual disturbances chest pain shortness breath fever chills or any other GI/ symptoms at this time. [facility] Medical History depression Asthma Constipation Impetigo Surgical History History of dental surgery Family History Mother Fibromyalgia Brother Asthma Family/Other Asthma Aunt Rheumatoid arthritis Aunt Uterine cancer Social History marital status: number of children: 4 household members: spouse, family and children lives independently: Yes caregiver/support person: Yes housing: house pets and animals: Yes (4 dogs, snake, lizard) education level: college occupational status: unemployed current occupational exposures/hazards: No special toyin needs: No travel history: over 6 months ago seatbelt use: always helmet use: Yes water heater temp set < 120 deg: Yes working smoke detector in home: Yes fire extinguisher in home: Yes carbon monox detector in home: Yes firearms in home: No do you feel safe at home: Yes Tobacco: How many years used: 10 second hand exposure: No alcohol intake: never substance use type: does not use during the past year weight has: remained stable well-balanced diet: daily or most days daily servings fruits/ve or more times/day caffeine: No Type(s) of exercise: walking frequency: daily Meds Home Medications and Allergies Home Medications ?Medication ?Instructions ?Recorded ?Confirmed ?Type vit no.95-ferrous 1 tab PO DAILY 01/24/24 04/09/24 History fumarate 28 mg-folic acid 800 mcg tablet ( Multivitamins) Allergies Allergy/AdvReac Type Severity Reaction Status Date / Time No Known Drug Allergies Allergy Verified 04/09/24 09:56 Exam Vital Signs (past 8 hours): - 06/14/25 01:36 06/14/25 03:01 06/14/25 03:02 Temperature 97.5 F L Pulse Rate 80 84 76 Respiratory Rate 18 Blood Pressure 124/64 Pulse Oximetry 100 98 100 Oxygen Delivery Method Room Air Oxygen Flow Rate 06/14/25 03:02 06/14/25 03:30 06/14/25 04:00 Temperature Pulse Rate 73 70 Respiratory Rate Blood Pressure 128/68 Pulse Oximetry 98 100 Oxygen Delivery Method Oxygen Flow Rate 06/14/25 04:30 06/14/25 05:00 06/14/25 05:24 Temperature Pulse Rate 75 88 82 Respiratory Rate Blood Pressure Pulse Oximetry 97 99 98 Oxygen Delivery Method Oxygen Flow Rate 06/14/25 05:26 06/14/25 06:02 Temperature 97.6 F Pulse Rate 82 Respiratory Rate 18 Blood Pressure 100/54 L 101/46 L Pulse Oximetry 99 Oxygen Delivery Method Oxygen Flow Rate 0 Oxygen Delivery Method Room Air Oxygen Flow Rate 0 Const General: comfortable Orientation: alert and oriented x3 HENMT Ears: hearing grossly normal bilaterally Eyes Visual Chávez: normal visual chávez by confrontation Conjunctivae: conjunctivae normal Sclera: sclerae normal (non-icteric) EOM: EOM intact bilaterally Resp Effort & Inspection: normal respiratory effort and able to speak in complete sentences Auscultation: clear to auscultation bilaterally Cardio Rate: regular rate Rhythm: regular rhythm GI Other: ABD: +RUQ tenderness Extrem General: no pedal edema and no calf tenderness Objective Labs 06/14/25 01:50 06/14/25 01:50 Labs: Laboratory Results - last 24 hr 06/14/25 01:50 WBC 8.6 RBC 4.61 Hgb 13.4 Hct 38.5 MCV 83.6 MCH 29.0 MCHC 34.7 RDW 13.3 Plt Count 481 H Neut % (Auto) 70.3 Lymph % (Auto) 21.9 L [place]bert % (Auto) 4.3 Eos % (Auto) 1.5 L Baso % (Auto) 2.0 Neut # (Auto) 6100 Lymph # (Auto) 1900 [place]bert # (Auto) 400 Eos # (Auto) 100 Baso # (Auto) 200 H Sodium 140 Potassium 3.4 Chloride 103 Carbon Dioxide 29 BUN 11 Creatinine 0.81 Estimated GFR > 60 BUN/Creatinine Ratio 13.6 Glucose 94 Calcium 9.0 Magnesium 2.1 Total Bilirubin 0.5 AST 34 ALT 56 H Alkaline Phosphatase 157 H Total Creatine Kinase 41 Troponin I < 0.012 Total Protein 7.8 Albumin 4.4 Globulin 3.4 Albumin/Globulin Ratio 1.3 Lipase 48 HCG, Quant < 2.39 Assessment & Plan Assessment and plan (1) Acute cholecystitis: Status: Acute Plan Laparoscopic cholecystectomy with IOCG. The risks, benefits and options regarding the procedure were explained to the patient in detail. Risk discussion included but not limited to: bleeding, infection, injury to surrounding organs, injury to bile duct, bile leaks, abscess, drain. The patient was encouraged to ask questions and they were answered to their satisfaction. The patient understands and is agreeable to proceed. Time-Based Coding :: [TOTAL MINUTES] spent with patient and on the chart (including review of chart, obtaining history, exam, reviewing outside data, placing orders, documenting exam and treatment plan, and counseling patient) on [DATE]. PROFEE Ruby Engineer Document charge(s): Yes Charge Codes Initial inpatient/observation care: [id number]
[2025-06-14] MEDS: LACTATED RINGERS 1,000 ML 42 ML IV (10:58)
--- NOTE | 2025-06-14 11:26 | SUR.OPER ---
Supine on padded OR bed, head on pillow, arms tucked, legs uncrossed, safety belt at thigh, tape over blanket over lower legs.
[2025-06-14] MEDS: BUPivacaine 0.25% W/ EPI (PF) 30 ML VIAL 60 ML INJ (12:11)
--- NOTE | 2025-06-14 12:44 | PM.DS.IH.1 ---
History of Present Illness History of Present Illness Date Patient Seen: 06/14/25 Time Patient Seen: 12:44 Chief complaint: nausea, pain, gallstones Narrative: 29yo F with acute cholecystitis. Admitted through ED for patrice chowdhury today. CT with distended gb, LFT elevations. Rocephin given in ED. U/S several months ago demonstrated gallstones. From ED note: Patient is a 29-year-old female with a past medical history of gallbladder stones coming into the ED from home for evaluation of epigastric/right upper quadrant abdominal pain, states that it started at around 11:00 p.m. yesterday, states that she did try taking Tums but without any significant relief therefore came into the ED for further evaluation treatment. She states that she was supposed to follow up with surgery to discuss gallbladder removal but was unable to get in to be seen. He denies any other symptoms such as headache visual disturbances chest pain shortness breath fever chills or any other GI/ symptoms at this time. Discharge Providers Provider Date of admission: 06/14/25 04:55 Discharge Date: 06/14/25 Primary care physician: Artie Del Angel MD Discharge provider: Jp Butts MD Summary Hospital Course Discharge Diagnosis: Acute cholecystitis, cholelithiasis Hospital Course: Admitted through ED overnight. Patrice chowdhury this morning. Once patient able to tolerate diet, discharged to home in stable condition. Status at Discharge Cognitive/behavioral status at discharge: oriented Functional status at discharge: independent ambulation Overall status at discharge: patient is progressing back to baseline Time Spent with Patient Time spent: Greater than 30 minutes Exam Vital Signs (past 8 hours): - 06/14/25 05:00 06/14/25 05:24 06/14/25 05:26 Temperature Pulse Rate 88 82 Respiratory Rate Blood Pressure 100/54 L Pulse Oximetry 99 98 Oxygen Delivery Method Oxygen Flow Rate 06/14/25 06:02 06/14/25 10:23 06/14/25 10:46 Temperature 97.6 F 96.9 F L 97.7 F Pulse Rate 82 63 70 Respiratory Rate 18 15 16 Blood Pressure 101/46 L 97/52 L 99/61 Pulse Oximetry 99 97 98 Oxygen Delivery Method Room Air Oxygen Flow Rate 0 0 Oxygen Delivery Method Room Air Oxygen Flow Rate 0 GI Other: ABD: appropriate tenderness for postop, incisions CDI Objective Labs 06/14/25 01:50 06/14/25 01:50 Labs: Laboratory Results - last 24 hr 06/14/25 01:50 WBC 8.6 RBC 4.61 Hgb 13.4 Hct 38.5 MCV 83.6 MCH 29.0 MCHC 34.7 RDW 13.3 Plt Count 481 H Neut % (Auto) 70.3 Lymph % (Auto) 21.9 L [place] % (Auto) 4.3 Eos % (Auto) 1.5 L Baso % (Auto) 2.0 Neut # (Auto) 6100 Lymph # (Auto) 1900 [place] # (Auto) 400 Eos # (Auto) 100 Baso # (Auto) 200 H Sodium 140 Potassium 3.4 Chloride 103 Carbon Dioxide 29 BUN 11 Creatinine 0.81 Estimated GFR > 60 BUN/Creatinine Ratio 13.6 Glucose 94 Calcium 9.0 Magnesium 2.1 Total Bilirubin 0.5 AST 34 ALT 56 H Alkaline Phosphatase 157 H Total Creatine Kinase 41 Troponin I < 0.012 Total Protein 7.8 Albumin 4.4 Globulin 3.4 Albumin/Globulin Ratio 1.3 Lipase 48 HCG, Quant < 2.39 PFSH Medical History depression Asthma Constipation Impetigo Surgical History History of dental surgery Family History Mother Fibromyalgia Brother Asthma Family/Other Asthma Aunt Rheumatoid arthritis Aunt Uterine cancer Social History marital status: number of children: 4 household members: spouse, family and children lives independently: Yes caregiver/support person: Yes housing: house pets and animals: Yes (4 dogs, snake, lizard) education level: college occupational status: unemployed current occupational exposures/hazards: No special toyin needs: No travel history: over 6 months ago seatbelt use: always helmet use: Yes water heater temp set < 120 deg: Yes working smoke detector in home: Yes fire extinguisher in home: Yes carbon monox detector in home: Yes firearms in home: No do you feel safe at home: Yes Tobacco: How many years used: 10 second hand exposure: No alcohol intake: never substance use type: does not use during the past year weight has: remained stable well-balanced diet: daily or most days daily servings fruits/ve or more times/day caffeine: No Type(s) of exercise: walking frequency: daily Discharge Assessment & Plan Assessment and Plan Assessment: S/P patrice choley for acute cholecystitis Plan of Treatment: Home today f/u office 2 weeks Discharge Plan Discharge Plan Patient Disposition: Home Provider Discharge Comment: Your surgery went great today. We were unable to get an x-ray of your bile duct due to a tiny gallbladder duct, could not advance the catheter. If you have fever, vomiting, jaundice (turning yellow) or additional gallbladder attacks, we may need to investigate your bile duct with an ERCP scope like we talked about before surgery. Diet as tolerated Activity as tolerated Shower OK, no swimming for 2 weeks See me in office in two weeks, please call number and make a postop appointment Discharge orders & Medications Prescriptions: New hydrocodone-acetaminophen 5-325 mg tablet 1 tab PO Q4-6H PRN (Reason: pain) Qty: 14 0RF ondansetron HCl 4 mg tablet 4 mg PO Q6H PRN (Reason: nausea and vomiting) Qty: 7 0RF Continued PNV no.95-ferrous fumarate-FA [ Multivitamins] 28 mg iron- 800 mcg tablet 1 tab PO DAILY Follow up/Referrals: Artie Del Angel MD [Primary Care Provider, Family Practice] Jp Butts MD [Physician, General Surgery] Diet/Activity/Treatments Diet: Diet as Tolerated Skin/Wound/Dressing Care Report to your healthcare provider any signs of infection, such as:: chills, fever, night sweats, increased pain, unusual drainage and unusual redness Visit Report/Discharge Packet Instructions: DI for Prescription Opioid Use, DI for Laparoscopic Cholecystectomy Stand Alone Forms: Patient Portal/API, Stroke Signs & Symptoms Discharge Data Primary Care Provider: Artie Del Angel Attending Provider: Jp Butts Admit Date/Time: 06/14/25 04:55 PROFEE Charge Codes Discharge inpatient/observation: [id number]
--- NOTE | 2025-06-14 12:51 | PM.OP.1 ---
Operative Date/Time/Diagnoses Date of procedure: 06/14/25 Time of procedure: 12:51 Pre-op diagnosis: Acute calculous cholecystitis Post-op diagnosis: same Procedure & Clinicians Procedure: Laparoscopic cholecystectomy with intraoperative cholangiogram attempted Same procedure(s) as scheduled: Yes Indications: 29yo F with known gallstones, presented to ED with acute cholecystitis Surgeon: Jp Butts Click Yes if Unassisted: Yes Anesthesia Type: General Operative Notes Findings: Distended gallbladder, required aspiration to aid grasping, cholangiogram attempted, cystic duct tiny, catheter would not advance Closure Type: primary Specimen(s): other (gallbladder) Applied: none Estimated Blood Loss (mL): 20 Blood products transfused: none Procedure in detail: After informed consent and satisfactory general endotracheal anesthesia, the abdomen was prepped and draped in the usual sterile manner. Surgical time-out was performed with all team members in agreement. The patient received appropriate preoperative antibiotics and VTE prophylaxis. The pneumoperitoneum was established under direct vision using the Laureano direct trocar cutdown technique. Carbon dioxide to a pressure of 15 mmHg was utilized. The 10 mm 30 degree lens was inserted and no trauma secondary to the trocar insertion was noted. Three 5 mm right upper quadrant trocars were inserted under direct vision. The patient was placed in reverse Trendelenburg [id number] position. The gallbladder was noted to be tense and distended and required aspiration of 60 cc of murky bilious fluid to aid in grasping. The fundus of the gallbladder was then retracted over the liver. The patient had greater omental adhesions to the gallbladder which were taken down with hook cautery. The infundibulum was retracted laterally for proper exposure of the cystic duct and artery. These structures were skeletonized by scoring the overlying peritoneum and continuing up the medial and lateral sides of the gallbladder. This untethered the gallbladder and allowed us to complete the skeletonization with hook cautery such that we had the critical view of safety achieved. We had two distinct structures entering the gallbladder with segment 5 of the liver posterior to this. We divided the cystic artery 1st to aid in further skeletonization of the short cystic duct. The cystic artery was doubly clipped with hemo lock clips and divided. This allowed further skeletonization of the cystic duct. A clip was placed on the cystic duct next to the gallbladder and a ductotomy was made with laparoscopic Metzenbaum scissors. The yellow ureteral catheter was placed through a 14 gauge Angiocath that had been placed in the right upper quadrant but the tiny cystic duct would not accommodate the catheter. I then created a 45 degree angle cut on the ureteral catheter hoping this would aid insertion, but it still would not enter the tiny duct and the duct was too short to create a more proximal ductotomy. It was my judgment that further attempts would risk bile duct injury so further attempts were abandoned. I placed 2 clips on the cystic duct proximal to the ductotomy and the cystic duct was divided with Metzenbaum scissors. The adhesions between the gallbladder and the liver were divided with hook cautery. The gallbladder was placed into an endo-pouch and removed. The right upper quadrant was irrigated and this was suctioned dry. The liver bed and clips were inspected and there was no bleeding or bile drainage noted. The pneumoperitoneum was released; the trocars were removed. There was no bleeding noted at the trocar sites. The 0 Vicryl [id number] suture at the umbilical fascia was tied and there were no palpable fascial defects. We used a total of 60 cc of 0.25% Marcaine with epinephrine. 10 cc was used in the skin incisions and 25 cc were injected into the transversus muscle bilaterally for laparoscopic TAP blocks. The skin incisions were closed using 4-0 Monocryl in a subcuticular manner. Dermabond glue was applied as a final dressing. The estimated blood loss was minimal. The instrument, sponge and needle counts were all correct x2. The patient tolerated the procedure well and was hemodynamically stable throughout. She was extubated in the operating room after reversal of general endotracheal anesthesia and transported to the recovery area in stable condition. Complications: none Post-operative Condition: stable Disposition: PACU Plan for aftercare: PACU then arriaga Likely home today
[2025-06-14] MEDS: ONDANSETRON 4 MG ODT SL (14:08)
--- NOTE | 2025-06-14 16:59 | PC.NURSE ---
Pt is dressed and ready for discharge home with Spouse. IV has been removed. Went over d/c instructions with Pt and Spouse-discussed d/c meds, time of last dose, reviewed stroke education, s/s of infection, no driving while taking narcotics, drink plenty of fluids to prevent constipation or dehydration, try to eat a low fat - easy to digest diet, and follow up with Dr. Butts in 1 week. Pt and Spouse denied further questions and Pt was taken out via w/c by ASSISTANT FINANCE MANAGER to POV with Spouse and all belongings.
== END 2025-06-14 17:04 | disposition home or self-care (01) ==
LOC: ED 04:43 → AC 10:42
PROVIDERS: Admitting Provider Surgery; Emergency Provider Student in an Organized Health Care Education/Training Program; PCP Family Medicine; Referring Provider Student in an Organized Health Care Education/Training Program; Visit Provider Surgery
PROC: 0FT44ZZ Resection of Gallbladder, Percutaneous Endoscopic Approach (ICD-10-PCS; CPT 47563; principal; 2025-06-14 11:00)
DX: K80.12 Calculus of gallbladder with acute and chronic cholecystitis without obstruction (principal)
CPT/HCPCS: 47562; 36415; 71045; 74177; 76705; 80053; 81025; 82550; 83690; 83735; 84484; 84702; 85025; 93005; 96365; 96375; 96376; 99222; 99284; G0378; J0689; J0696; J1100; J1885; J2250; J2270; J2405; J2704; J3010; Q9967